=== PATIENT | female | born 1985 | race Caucasian/White ===

== ENCOUNTER → 2017-11-19 15:45 | Outpatient (CLI) | payer SELFPAY ==
--- NOTE | 2017-11-19 16:00 | MRI_ITS ---
STUDY: MRI BRAIN WITH AND WITHOUT CONTRAST REASON FOR EXAM: Female, 32 years old. Right optic neuritis and fullness with blurred vision TECHNIQUE: Standardized multiplanar fat and water weighted pulse sequences were obtained. 9 ml of Gadavist contrast material was administered intravenously for the contrast portion of the examination. COMPARISON: None. FINDINGS: Normal size of the ventricles and extra-axial spaces for the patient's age. There are multiple nonspecific bilateral periventricular white matter lesions several of which involve the septal callosal interface and in a female patient of this age may be consistent with multiple sclerosis. Normal bilateral basal ganglia. Normal thalami. There is no extra-axial fluid accumulation. Normal flow voids within the major intracranial circulation suggesting patency by spin echo criteria. Normal venous enhancement. There are enhancing foci in the right posterior temporal and parietal lobes which may be consistent with actively demyelinating plaque. Normal sella turcica, pituitary gland, infundibular stalk, optic chiasm and hypothalamus. Normal tectal plate and pineal gland. Normal midbrain, altagracia and medulla. Normal cerebellum. Normal basal cisterns. Normal bilateral temporal bones. Normal bilateral internal auditory canals. There is increased signal intensity seen within the retro-orbital portion of the right optic nerve which also enhances consistent with optic neuritis and enhancing plaque.. There is mild mucosal thickening within the maxillary and ethmoid sinuses bilaterally. Normal calvarium and skull base. Normal visualized soft tissue structures. Normal visualized upper cervical spine. MRI/Brain W/WO Contrast IMPRESSION: Findings which may be consistent with multiple sclerosis in association with right optic neuritis and enhancing plaque in the right optic nerve as well as the right posterior temporal and parietal lobes consistent with acute demyelination Electronically Signed: Aron Mcfadden MD at 18:04 EST , Service support ,
[2017-11-19 16:21] LABS: Internal QC Validated? YES +Cl - CLEAR BKGD; Pregnancy, Urine Negative Negative
== END ==
PROVIDERS: Family Provider Nurse Practitioner; PCP Nurse Practitioner; Visit Provider Ophthalmology
DX: H46.9 Unspecified optic neuritis (principal)
CPT/HCPCS: 70553; 81025; A9585

== ENCOUNTER 2018-02-06 08:26 | Emergency (ER) | payer SELFPAY ==
[2018-02-06 08:27] VITALS: BP 131/73; PULSE 101; RESP 20; TEMP 36.1; BMI 29.0
--- NOTE | 2018-02-06 08:45 | ED.VISSUMM ---
- ER Visit Summary Date of Service: 02/06/18 Chief Complaint: Abdominal pain History of Present Illness: The patient is a 33 F who sees Aracelis Lorenzo. She reports that she has abdominal pain began at 4:00 this morning. Today cramping, twisting diffuse pain is 10 out of 10 at worst a 10 currently. Is worsened by nothing. Is relieved transiently by diarrhea. She has been nausea and vomited 6-7 times. No blood or emesis. She has had 6-7 episodes of diarrhea. No blood in her stools or black tarry stools. Patient denies sick contacts. Has not been camping out of the country. No possible bad food exposure. Does drink well water but others at home due as well and they are not ill. No recent antibiotic use. She reports that she had similar symptoms over last weekend as well. Physical Examination: Vitals: Stable. Afebrile. General: Well-nourished and well-developed. Head: Normocephalic atraumatic. Neck: Supple, no lymphadenopathy. No JVD. Nontender. Cardiovascular: Regular rate and rhythm. No murmurs. Respiratory: No respiratory distress. Clear to auscultation bilaterally. Abdominal: Soft, mild diffuse sinus palpation that is worst in the epigastric region no Correa sign, nondistended, normal bowel sounds. No guarding, rebound, or peritoneal signs. Back: Nontender. Extremities: Nontender, no edema. Skin: Normal color, no rash. Neurologic: Alert and oriented ?3. Cranial nerves II through XII are intact. Normal strength and sensation. Psych: Normal affect. Test Results: CBC is marked for white count of 17.6 with 86 7 neutrophils and 8 lymphocytes. Chem-7 is normal. LFTs marked for an AST of 13. Lipase normal. test negative. CT flank shows normal appendix, multiple fluid filled non-dilated small bowel loops consistent with enteritis. Normal colon. Biliary sludge with no inflammation. A 2.3 cm subareolar left breast mass. Emergency Department Course and Treatment: Patient had an IV placed. She was given a there are of normal saline, Toradol, morphine, and Zofran IV. She is resting comfortably. She has had no diarrhea while here. Treatment Plan: Patient was discussed with Dr. Bhatia who states that she will speak with Dr. Whipple and then call the patient regarding further imaging of this breast mass. She will be discharged with Zofran and Notus for the diarrhea and abdominal pain. Instructed to follow-up Aracelis Lorenzo in 1-2 days if that is not improving. Return to the emergency department for any worsening symptoms. Disposition: To home in improved and stable condition. Impression: 1. Vomiting/diarrhea. 2. Biliary sludge. 3. 2.3 cm subareolar left breast mass. This note was generated with [employer] dictation software. It may contain incorrect words, spelling, and punctuation that were not noted in review of the chart prior to signing ED Disposition - Plan for ED Patient: Disposition: Home or Assisted Living Chief Complaint: Abd Pain Instructions: ED Breast Mass Uncertain Cause, ED Vomiting Diarrhea Nonspecific Ad Prescriptions: Hydrocodone Bitart/Apap 5-325 [Notus 5/325] 1 - 2 tablet PO Q4H PRN PRN 3 Days #12 tablet PRN Reason: Pain Ondansetron [Zofran Odt] 4 mg PO Q8H PRN PRN #10 tablet PRN Reason: Nausea Referrals: Aracelis Hurd [Primary Care Provider] - 1-2 Days if not improving Kelly Lofton MD [STAFF PHYSICIAN] - As soon as possible
[2018-02-06 09:08] LABS: Absolute Lymphocyte Count 1.38 X10^3/ul (0.83-4.51); Absolute Neutrophil Count 15.2 X10^3/uL (2.0-7.7); Basophil# 0.06 X10^3/uL; Basophil% 0.3 % (0-1); Eosinophils% 0.6 % (0-5); Hematocrit 42.4 % (37-47); Hemoglobin 14.7 g/dl (12.0-15.0); Lymphocyte # 1.38 X10^3/ul (4.0); Lymphocyte % 7.9 % (19-41); Mean Corp Hgb Conc 34.7 g/gl (32-36); Mean Corpuscular Hgb 30.2 pg (27.0-32.0); Mean Corpuscular Volume 87.1 fL (81-99); Mean Platelet Vol. 10.4 fl (6.2-12.0); Monocyte# 0.82 X10^3/uL; Monocyte% 4.7 % (0-10); Neutrophil # 15.17 X10^3/uL (2.7-7.7); Neutrophil % 86.3 % (47-70); Platelet Count 375 K/mm3 (150-450); RBC Distribution Width CV 12.3 % (11.6-14.6); RBC Distribution Width SD 38.7 fl (35.1-43.9); Red Blood Count 4.87 M/mm3 (4.2-5.4); White Blood Count 17.6 K/mm3 (4.4-11.0)
[2018-02-06] MEDS: proMETHazine 25 MG/ML Syringe 6.25 MG IV (09:08)
[2018-02-06] MEDS: 0.9% Normal Saline 1,000 ML 1000 ML IV (09:08)
[2018-02-06 09:09] LABS: Differential Indicated SCAN CRITERIA MET; POSITIVE COUNT NO; POSITIVE DIFFERENTIAL NO; POSITIVE MORPHOLOGY YES
[2018-02-06] MEDS: Morphine 4 MG/ML Syringe IV (09:09)
[2018-02-06] MEDS: Ketorolac 30 MG/ML Syringe IV (09:09)
[2018-02-06 09:17] LABS: BUN 10 mg/dL (7-18); Creatinine, Serum 0.72 mg/dL (0.55-1.02); Glucose 93 mg/dL (74-106)
[2018-02-06 09:18] LABS: ALB/GLOB Ratio 1.1 RATIO (0.9-2.4); AST(SGOT) 13 U/L (15-37); Alanine Aminotransfer ALT/SGPT 22 U/L (13-56); Albumin, Serum 4.2 g/dL (3.2-5.0); Alkaline Phosphatase 57 U/L (45-117); Anion Gap 8 (5-15); BUN/Creat Ratio 13.9 RATIO (10-20); Chloride 105 mmol/L (98-107); EST Glomerular Filtration Rate 101 mL/min (>60); Est Glom Filt Rate - Afr Amer 122 mL/min (>60); Estimated Creatinine Clearance 105.98 ml/min; Globulin 3.9 g/dL (2.2-4.2); Lipase 156 U/L (73-393); Potassium 3.9 mmol/L (3.5-5.1); Protein, Total 8.1 g/dL (6.4-8.2); Sodium Level 139 mmol/L (136-145)
[2018-02-06 09:20] LABS: Pregnancy, Serum, hCG Quali. NEGATIVE Negative (0-9 Nonpreg)
--- NOTE | 2018-02-06 10:05 | CT_ITS ---
STUDY: CT ABDOMEN AND PELVIS WITHOUT CONTRAST REASON FOR EXAM: Female, 33 years old. Diarrhea and pain x3 days. RADIATION DOSAGE (If Supplied By Facility): CTDIvol = ( 13.89 ) mGy, DLP = ( 679.95 ) mGycm TECHNIQUE: Transaxial images were obtained from the dome of the diaphragm to the symphysis pubis without oral contrast, and without intravenous contrast. Sagittal and coronal images were reconstructed. Individualized dose optimization techniques were used for this CT. COMPARISON: None. FINDINGS: There appears to be a 2.3 cm subareolar left breast mass. Recommend correlation with mammography and ultrasound. The visualized lung bases are unremarkable. The visualized portions of the heart are within normal limits. Normal liver. Mildly high density materials layering within the gallbladder. No gallstones are evident. There is no pericholecystic fluid. There is no gallbladder wall thickening. Intrahepatic and extra hepatic bile ducts appear unremarkable. Normal spleen. Normal pancreas. Normal bilateral adrenal glands. Normal right kidney. Normal left kidney. Normal visualized stomach. There multiple fluid-filled nondilated small bowel loops, predominantly within the low abdomen/upper pelvis. Normal colon. The appendix is visualized and appears normal. There is no free fluid. There is no free air. Normal abdominal aorta. Normal inferior vena cava. Normal retroperitoneum. Normal urinary bladder. Normal abdominal wall. Normal osseous structures. CT/Abdomen/Pelvis without Cont IMPRESSION: Multiple fluid-filled nondilated small bowel loops within the low abdomen/upper pelvis. Consider enteritis. No evident obstruction. No free air. No free fluid. Gallbladder sludge. Left subareolar breast mass. Recommend correlation with mammography and sonography. Electronically Signed: Renzo Victor MD at 10:37 EDT , Service support ,
[2018-02-06 10:33] VITALS: BP 124/67; PULSE 72; RESP 16; O2SAT 99
[2018-02-06 11:20] VITALS: BP 127/49; PULSE 71; RESP 16; O2SAT 98
[2018-02-11 09:33] LABS: Pathologist Review Reviewed
== END 2018-02-06 11:21 | disposition home or self-care (01) ==
LOC: ED 09:16
PROVIDERS: Emergency Provider Emergency Medicine; Family Provider Nurse Practitioner; PCP Nurse Practitioner
DX: R11.2 Nausea with vomiting, unspecified (principal); R19.7 Diarrhea, unspecified; K83.8 Other specified diseases of biliary tract; N63.20 Unspecified lump in the left breast, unspecified quadrant
CPT/HCPCS: 74176; 80053; 83690; 84703; 85025; 96374; 96375; 99283; J7030

== ENCOUNTER → 2018-02-11 09:41 | Outpatient (CLI) | payer SELFPAY ==
--- NOTE | 2018-02-11 09:46 | BI_ITS ---
MAMMOGRAPHY - BILATERAL DIAGNOSTIC REASON FOR EXAM: Female, 33 years old. BASELINE EXAM PERTINENT HISTORY: CT SCAN DONE 02/06/17 FOUND LEFT BREAST MASS 2.3CM -NOT PALPABLE NO SX QUIT BREAST FEEDING IN NOV 2017 TECHNIQUE: Digital bilateral breast isaac (3D mammographic acquisition) in the CC and MLO projections. 2-D mediolateral oblique (MLO) and craniocaudad (CC) views of both breasts were obtained. CAD: Full Field Digital Mammography with Computer Added Detection was performed. COMPARISON: None. FINDINGS: Breast Composition: The breasts are heterogeneously dense, which may obscure small masses. There are no dominant masses or suspicious calcifications. The described mass noted on CT scan is not seen on this study. Further evaluation by ultrasound of the retroareolar region of the left breast is recommended and is performed on the same day. No other significant abnormalities are identified. BI/DIAG MAMM W/CAD, BILAT IMPRESSION: Further ultrasonographic evaluation recommended, as described above. (I) ASSESSMENT CATEGORY: BIRADS Category 0: Incomplete. Need additional imaging evaluation. A letter regarding these results will be sent to the patient by the facility within 30 days. Approximately 10% of breast cancers are not detected by mammography. A normal mammogram should not delay biopsy of a clinically suspicious abnormality. Electronically Signed: Dylon Reyes MD at 15:22 EDT Tel , Service support ,
--- NOTE | 2018-02-11 09:46 | US_ITS ---
STUDY: ULTRASOUND BREAST - LEFT REASON FOR EXAM: Female, 33 years old. BREAST MASS ON CT PT HAD MAMMO TODAY ALSO TECHNIQUE: Axial and longitudinal images of the LEFT breast were performed with a high resolution ultrasound transducer. COMPARISON: None. FINDINGS: LEFT Breast: There is a cystic lesion in the retroareolar region. The lesion measures 1.7 x 1.5 x 0.7 cm in size. Posterior Enhancement: Yes. Posterior Shadowing: None. Margins: Sharp and smooth. Echogenicity: Anechoic. Compression effect on Shape: No change. US/Breast Limited Unilateral IMPRESSION: Benign retroareolar cystic lesion measures 1.7 x 1.5 x 0.7 cm. ASSESSMENT CATEGORY: BIRADS Category 2: Benign. A letter regarding these results will be sent to the patient by the facility within 30 days. Electronically Signed: Dylon Reyes MD at 14:24 EDT Tel , Service support ,
== END ==
PROVIDERS: Family Provider Nurse Practitioner; PCP Nurse Practitioner; Visit Provider Obstetrics & Gynecology
DX: N63.20 Unspecified lump in the left breast, unspecified quadrant (principal)
CPT/HCPCS: 76642; 77062; 77066; G0279

== ENCOUNTER → 2018-11-05 11:00 | Outpatient (CLI) | payer SELFPAY ==
--- NOTE | 2018-11-05 11:17 | MRI_ITS ---
STUDY: MRI BRAIN WITH AND WITHOUT CONTRAST REASON FOR EXAM: Female, 33 years old. MS -- dx with ms 1 year, on meds since, recheck, vision problems from then resolved. TECHNIQUE: Standardized multiplanar fat and water weighted pulse sequences were obtained. 8 ml of Gadavist contrast material was administered intravenously for the contrast portion of the examination. COMPARISON: 11/19/2017 FINDINGS: Normal size of the ventricles and extra-axial spaces for the patient's age. Again noted are the multiple periventricular and subcortical small white matter hyperintensities. Some of which demonstrate typical configuration of multiple sclerosis without evidence of enhancement or restriction to chicken stub dictation by to suggest active demyelination. There are no demonstrated new lesions Normal bilateral basal ganglia. Normal thalami. There is no extra-axial fluid accumulation. Normal flow voids within the major intracranial circulation suggesting patency by spin echo criteria. Normal venous enhancement. There is no enhancing intra-axial or extra-axial abnormality. Normal sella turcica, pituitary gland, infundibular stalk, optic chiasm and hypothalamus. Normal tectal plate and pineal gland. Normal midbrain, altagracia and medulla. Normal cerebellum. Normal basal cisterns. Normal bilateral temporal bones. Normal bilateral internal auditory canals. No demonstrated orbital abnormality, within the constraints of a routine brain study. Normal visualized paranasal sinuses. Normal calvarium and skull base. Normal visualized soft tissue structures. Normal visualized upper cervical spine. MRI/Brain W/WO Contrast IMPRESSION: Stable examination. No active demyelination. Multiple supratentorial white matter plaques. Electronically Signed: Ihsan Dupont MD at 13:55 EST Tel , Service support ,
--- NOTE | 2018-11-05 13:38 | BI_ITS ---
MAMMOGRAPHY - BILATERAL DIAGNOSTIC REASON FOR EXAM: Female, 33 years old. Right breast lump. PERTINENT HISTORY: History of left breast cyst. TECHNIQUE: Digital bilateral breast isaac (3D mammographic acquisition) in the CC and MLO projections. 2-D mediolateral oblique (MLO) and craniocaudad (CC) views of both breasts were obtained. CAD: Full Field Digital Mammography with Computer Added Detection was performed. COMPARISON: Comparison is made with prior study dated February 11, 2018. FINDINGS: Breast Composition: The breasts are heterogeneously dense, which may obscure small masses. There is a 1.8 cm x 1.6 cm well-defined nodular density in the inferior retroareolar region of the left breast. No other significant abnormalities are identified. There has been no significant change since the prior study. BI/DIAG MAMM W/CAD, BILAT IMPRESSION: Stable bilateral diagnostic mammogram. With the patient's history of a palpable abnormality in the upper lateral aspect of the right breast, correlation with ultrasound is recommended. Correlation with ultrasound of the left breast in the retroareolar region is recommended as well. ASSESSMENT CATEGORY: BIRADS Category 0: Incomplete. Need additional imaging evaluation. A letter regarding these results will be sent to the patient by the facility within 30 days. Approximately 10% of breast cancers are not detected by mammography. A normal mammogram should not delay biopsy of a clinically suspicious abnormality. Electronically Signed: Luigi Chou MD at 14:48 EST , Service support ,
--- NOTE | 2018-11-05 13:38 | US_ITS ---
STUDY: ULTRASOUND BREAST - RIGHT REASON FOR EXAM: Female, 33 years old. Palpable abnormality in the upper outer quadrant of the breast. TECHNIQUE: Axial and longitudinal images of the RIGHT breast were performed with a high resolution ultrasound transducer. COMPARISON: Comparison is made with prior mammogram done earlier today. FINDINGS: RIGHT Breast: The palpable abnormality corresponds to a 1 cm x 1 cm x 0.5 cm well-defined hypoechoic nodule. Flow is seen within the hilum. This most likely represents a lymph node. IMPRESSION: Findings suggestive of a 1 cm x 1 cm x 0.5 cm lymph node at the 11:00 position of the breast at 8 cm from the nipple. ASSESSMENT CATEGORY: BIRADS Category 2: Benign. A letter regarding these results will be sent to the patient by the facility within 30 days. Electronically Signed: Luigi Chou MD at 15:45 EST , Service support , STUDY: ULTRASOUND BREAST - LEFT REASON FOR EXAM: Female, 33 years old. Known left breast cyst. TECHNIQUE: Axial and longitudinal images of the LEFT breast were performed with a high resolution ultrasound transducer. COMPARISON: Comparison is made with prior ultrasound of the left breast dated February 11, 2018. FINDINGS: LEFT Breast: There is a 1.7 cm x 2.1 cm x 0.6 cm cyst in the inferior retrosternal areolar region of the breast. This has increased slightly in size as compared to prior study. US/Breast Limited Unilateral IMPRESSION: Slight increase in size of the inferomedial retroareolar cyst. ASSESSMENT CATEGORY: BIRADS Category 2: Benign. A letter regarding these results will be sent to the patient by the facility within 30 days. Electronically Signed: Luigi Chou MD at 15:46 EST , Service support ,
--- OUTSIDE RECORDS SUMMARY | 2019-01-07 08:54 | XMS RPT_ITS ---
:1985 Author Organization OHIP Care Team Providers Name Role Phone VINCENTLARACELIS R Attending Unavailable RENSEL, ARACELIS R Referring Unavailable RENSEL, ARACELIS R Referring Unavailable RENSEL, ARACELIS R Referring Unavailable RENSEL, ARACELIS R Referring Unavailable RENSEL, ARACELIS R Referring Unavailable CARLY LI (MEDICAL IMAGING TECHNICIAN) Attending Unavailable RENSEL, ARACELIS R Referring Unavailable Josias KRISHNAN (PA-C) Attending Unavailable KELLY ELIAS Attending Unavailable KELLY ELIAS Referring Unavailable Kelly Lofton Attending Unavailable LUPE RICHARDS Referring Unavailable [facility] Primary Care Unavailable Kelly Lofton Consulting Unavailable Aron Perez Attending Unavailable Aron Perez Referring Unavailable Aracelis Hurd Primary Care Unavailable Ciesa, Aracelis Primary Care Unavailable Dillon Soto Attending Unavailable Natividad Viramontes Attending Unavailable Natividad Viramontes Referring Unavailable Ashlitiminocencia Aracelis Primary Care Unavailable PROBLEMS PROBLEMS DATE TYPE CONDITION / CODE ATTENDING STATUS SOURCE 03/07/2018 Unknown N63.20 - Wander Active Anya Unspecified lump in [facility] the left breast, Hospital unspecified Repository quadrant / N63.20(ICD-10) 02/06/2018 Unknown R10.9 - Unspecified Dillon Soto Active [place] abdominal pain / Community R10.9(ICD-10) Hospital Repository 11/26/2017 Active Multiple sclerosis NA Active [facility] / G35(ICD-10) Main [place] Repository 11/26/2017 Active Demyelinating NA Active [facility] disease of central Main [place] nervous system, Repository unspecified / G37.9(ICD-10) 11/25/2017 Unknown H46.9 - Unspecified Perez, Active Anya optic neuritis / [facility] H46.9(ICD-10) Hospital Repository PROCEDURES PROCEDURES No Procedure Records FoundRESULTS RESULTS DIAG MAMM W/CAD, Observed: 11/05/2018 Status: F Source: [place] B[place] 1:44 PM [facility] [place] REPOSITORY [facility] [address] [place] [address] DIAG MAMM W/CAD, BILAT MR#: [id number] Acct: [id number] Name: ARGENIS TSAI Rep #: [id number] : 1985 F 33 From: Luigi Chou MD PCP: Aracelis Hurd NP Status: REG CLI Study: DIAG MAMM W/CAD, BILAT Date of Exam: 11/05/18 Exam# [id number] Ordering Dr: Kelly Banda MD ADDENDUM by Luigi Chou MD on 11/05/18 at 1543 ADDENDUM This is an addendum report. Image count was updated. Electronically Signed: Luigi Chou MD at 15:43 EST , Service support , 11/05/18 1543 Date cc: Aracelis Hurd NP; Kelly Lofton MD * Signed ADDENDUM by Luigi Chou MD on 11/05/18 at 1543 BI/DIAG MAMM W/CAD, BILAT 11/05/18 1550 Date cc: Aracelis Hurd NP; Kelly Lofton MD * Signed MAMMOGRAPHY - BILATERAL DIAGNOSTIC REASON FOR EXAM: Female, 33 years old. Right breast lump. PERTINENT HISTORY: History of left breast cyst. TECHNIQUE: Digital bilateral breast isaac (3D mammographic acquisition) in the CC and MLO projections. 2-D mediolateral oblique (MLO) and craniocaudad (CC) views of both breasts were obtained. CAD: Full Field Digital Mammography with Computer Added Detection was performed. COMPARISON: Comparison is made with prior study dated February 11, 2018. FINDINGS: Breast Composition: The breasts are heterogeneously dense, which may obscure small masses. There is a 1.8 cm x 1.6 cm well-defined nodular density in the inferior retroareolar region of the left breast. No other significant abnormalities are identified. There has been no significant change since the prior study. BI/DIAG MAMM W/CAD, BILAT IMPRESSION: Stable bilateral diagnostic mammogram. With the patient's history of a palpable abnormality in the upper lateral aspect of the right breast, correlation with ultrasound is recommended. Correlation with ultrasound of the left breast in the retroareolar region is recommended as well. ASSESSMENT CATEGORY: BIRADS Category 0: Incomplete. Need additional imaging evaluation. A letter regarding these results will be sent to the patient by the facility within 30 days. Approximately 10% of breast cancers are not detected by mammography. A normal mammogram should not delay biopsy of a clinically suspicious abnormality. Electronically Signed: Luigi Chou MD at 14:48 EST , Service support , CC: Aracelis Hurd NP; Kelly Lofton MD Account Manager Trainee: Signed BREAST LIMITED Observed: 11/05/2018 Status: F Source: [place] UNILATERAL 1:44 PM [facility] REPOSITORY [facility] [address] [place] [id number] Breast Limited Unilateral MR#: [id number] Acct: [id number] Name: ARGENIS TSAI Rep #: [id number] : 1985 F 33 From: Luigi Chou MD PCP: Aracelis Hurd NP Status: REG CLI Study: Breast Limited Unilateral Date of Exam: 11/05/18 Exam# [id number] Ordering Dr: Kelly Banda MD STUDY: ULTRASOUND BREAST - RIGHT REASON FOR EXAM: Female, 33 years old. Palpable abnormality in the upper outer quadrant of the breast. TECHNIQUE: Axial and longitudinal images of the RIGHT breast were performed with a high resolution ultrasound transducer. COMPARISON: Comparison is made with prior mammogram done earlier today. FINDINGS: RIGHT Breast: The palpable abnormality corresponds to a 1 cm x 1 cm x 0.5 cm well-defined hypoechoic nodule. Flow is seen within the hilum. This most likely represents a lymph node. IMPRESSION: Findings suggestive of a 1 cm x 1 cm x 0.5 cm lymph node at the 11:00 position of the breast at 8 cm from the nipple. ASSESSMENT CATEGORY: BIRADS Category 2: Benign. A letter regarding these results will be sent to the patient by the facility within 30 days. Electronically Signed: Luigi Chou MD at 15:45 EST , Service support , STUDY: ULTRASOUND BREAST - LEFT REASON FOR EXAM: Female, 33 years old. Known left breast cyst. TECHNIQUE: Axial and longitudinal images of the LEFT breast were performed with a high resolution ultrasound transducer. COMPARISON: Comparison is made with prior ultrasound of the left breast dated February 11, 2018. FINDINGS: LEFT Breast: There is a 1.7 cm x 2.1 cm x 0.6 cm cyst in the inferior retrosternal areolar region of the breast. This has increased slightly in size as compared to prior study. US/Breast Limited Unilateral IMPRESSION: Slight increase in size of the inferomedial retroareolar cyst. ASSESSMENT CATEGORY: BIRADS Category 2: Benign. A letter regarding these results will be sent to the patient by the facility within 30 days. Electronically Signed: Luigi Chou MD at 15:46 EST , Service support , CC: Aracelis Hurd NP; Kelly Lofton MD Account Manager Trainee: Signed BRAIN W/WO CONTRAST Observed: 11/05/2018 Status: F Source: ANYA 11:17 AM [facility] REPOSITORY [facility] [address] [place] [address] Brain W/WO Contrast MR#: [id number] Acct: [id number] Name: ARGENIS TSAI Rep #: [id number] : 1985 F 33 From: Ihsan Dupont PCP: Aracelis Hurd NP Status: REG CLI Study: Brain W/WO Contrast Date of Exam: 11/05/18 Exam# [id number] Ordering Dr: AUDRA LEVIN M.D. STUDY: MRI BRAIN WITH AND WITHOUT CONTRAST REASON FOR EXAM: Female, 33 years old. MS -- dx with ms 1 year, on meds since, recheck, vision problems from then resolved. TECHNIQUE: Standardized multiplanar fat and water weighted pulse sequences were obtained. 8 ml of Gadavist contrast material was administered intravenously for the contrast portion of the examination. COMPARISON: 11/19/2017 FINDINGS: Normal size of the ventricles and extra-axial spaces for the patient's age. Again noted are the multiple periventricular and subcortical small white matter hyperintensities. Some of which demonstrate typical configuration of multiple sclerosis without evidence of enhancement or restriction to chicken stub dictation by to suggest active demyelination. There are no demonstrated new lesions Normal bilateral basal ganglia. Normal thalami. There is no extra-axial fluid accumulation. Normal flow voids within the major intracranial circulation suggesting patency by spin echo criteria. Normal venous enhancement. There is no enhancing intra-axial or extra-axial abnormality. Normal sella turcica, pituitary gland, infundibular stalk, optic chiasm and hypothalamus. Normal tectal plate and pineal gland. Normal midbrain, altagracia and medulla. Normal cerebellum. Normal basal cisterns. Normal bilateral temporal bones. Normal bilateral internal auditory canals. No demonstrated orbital abnormality, within the constraints of a routine brain study. Normal visualized paranasal sinuses. Normal calvarium and skull base. Normal visualized soft tissue structures. Normal visualized upper cervical spine. MRI/Brain W/WO Contrast IMPRESSION: Stable examination. No active demyelination. Multiple supratentorial white matter plaques. Electronically Signed: Ihsan Dupont MD at 13:55 EST Tel , Service support , CC: AUDRA LEVIN M.D.; Aracelis Hurd NP Account Manager Trainee: Signed PROGRESS Observed: 10/24/2018 Status: COMPLETED Source: [place] 10:11 AM [facility] REPOSITORY O ID: [id number] Author: Kelly Aguirre Service: (none) Author Type: Physician Type: Progress Notes Filed: 10/24/2018 10:40 AM Note Text: Argenis Tsai is a 33 year old who presents for her annual gynecologic exam without complaints. Doing well with meds for Has 4 children- youngest is one year old Menses: cycles every 28-30 days and 6 days of flow. Contraception: vasectomy HPV vaccine: No Last Pap: 2017 normal HPV: N/A History of abnormal pap: No Last mammogram: 2017 left breast cyst Sexually active: Yes History of STDS: None Patient concerns for STD exposure: No. Pain with intercourse: No Postcoital bleeding: No Exercise: not routine Diet: balanced Obstetric History T4 L4 SAB0 TAB0 Ectopic0 Multiple0 Live Births4 PAST MEDICAL HISTORY Diagnosis Date - Gestational diabetes mellitus, class A1 04/01/2017 - NEGATIVE MEDICAL HISTORY PAST SURGICAL HISTORY Procedure Laterality Date - TONSILLECTOMY HX FAMILY HISTORY Problem Relation Age of Onset - Heart Mother PACEMAKER/aortic aneurysm, age 40 - Hypertension Mother - Diabetes Mother - other (Granuloma Annulare w/ ?Lupus) Mother - Diabetes Father - Hypertension Father - Lipids Father - Asthma Sister - Heart Sister aortic valve stensosis: surgery, aortic arch aneurysm - Diabetes Sister - Hypertension Brother - Alzheimer's Disease Maternal Grandmother - Prostate Cancer Maternal Grandfather - other (Pemphigoid) Maternal Grandfather - Heart Paternal Grandfather ID - Breast Cancer Maternal Aunt - Cancer Paternal Uncle PANCREATIC - other (lupus) Maternal Aunt SOCIAL HISTORY Social History Substance Use Topics - Smoking status: Never Smoker - Smokeless tobacco: Never Used - Alcohol use No REVIEW OF SYSTEMS Abdomen: No abdominal pain, nausea, vomiting, diarrhea, or constipation. No bloating, early satiety, indigestion, or increased flatulence. Bladder: No dysuria, gross hematuria, urinary frequency, urinary urgency, or incontinence. Breast: No breast lumps, nipple d/c, overlying skin changes, redness or skin retraction. Allergies and current medication updated:Yes EXAM: BP 114/70 Ht 5' 5.5 (1.66m) Wt 190 lb (86.2kg) LMP 09/27/2018 BMI 31.13 kg/(m2). GENERAL: pleasant, female in no apparent distress HEENT: Normocephalic, atraumatic, mucus membranes moist and no lesions NECK: Supple, full range of motion, no adenopathy and thyroid normal DERMATOLOGY: Normal, without lesions, non-icteric and non-hirsute BREAST: soft, non-tender, symmetric, normal nipple-areolar complex, no lymphadenopathy and right breast with oval mass noted in upper outer quadrant right breast. Nipple discharge present Bilaterally- milky in nature. Left breast cyst previously noted on ultrasound- not palpable today ABDOMEN: soft, non-tender and no masses PELVIC: external genitalia normal, normal Bartholin's glands, urethra, [place]'s glands, no vulvar lesions, no cervical lesions, good vaginal support, physiologic discharge present, normal appearing perineal body and perianal region BIMANUAL: uterus normal size, shape and consistency, no adnexal masses and non-tender RECTOVAGINAL: deferred. NEURO: alert and oriented x3,exam grossly non-focal EXTREMITIES: normal ASSESSMENT/PLAN: 1) Health maintenance: Pap/HPV up to date. Mammogram ordered bilateral diagnostic and ultrasound Nutrition, exercise and routine health maintenance exams reviewed. 2) Contraception: vasectomy. Contraceptive options reviewed and information provided. 3) STD screening: Declined STD check. 4) Follow up one year or sooner as needed Kelly Lofton MD PROGRESS Observed: 10/24/2018 Status: COMPLETED Source: [place] 9:59 AM [facility] REPOSITORY HNO ID: [id number] Author: Sandra Brock Ma Service: (none) Author Type: (none) Type: Progress Notes Filed: 10/24/2018 10:40 AM Note Text: Surface Hydrologist offered: Patient declines. CARIDAD Observed: 10/24/2018 Status: COMPLETED Source: [place] 9:50 AM [facility] REPOSITORY Office Visit (WOOB) ARGENIS TSAI ([id number]) 1985 F Date Time Provider Department 10/24/18 9:50 AM KELLY ELIAS During your visit today, we recorded the following information about you: Blood pressure Weight Height Last Period 114/70 86.2 kg 1.664 m 09/27/18 Sandra Brock Ma 10/24/2018 10:40 AM Signed Surface Hydrologist offered: Patient declines. Kelly Lofton MD 10/24/2018 10:40 AM Signed Argenis Mary Tsai is a 33 year old who presents for her annual gynecologic exam without complaints. Doing well with meds for Has 4 children- youngest is one year old Menses: cycles every 28-30 days and 6 days of flow. Contraception: vasectomy HPV vaccine: No Last Pap: 2016 normal HPV: N/A History of abnormal pap: No Last mammogram: 2017 left breast cyst Sexually active: Yes History of STDS: None Patient concerns for STD exposure: No. Pain with intercourse: No Postcoital bleeding: No Exercise: not routine Diet: balanced Obstetric History T4 L4 SAB0 TAB0 Ectopic0 Multiple0 Live Births4 PAST MEDICAL HISTORY Diagnosis Date - Gestational diabetes mellitus, class A1 04/01/2017 - NEGATIVE MEDICAL HISTORY PAST SURGICAL HISTORY Procedure Laterality Date - TONSILLECTOMY HX FAMILY HISTORY Problem Relation Age of Onset - Heart Mother PACEMAKER/aortic aneurysm, age 40 - Hypertension Mother - Diabetes Mother - other (Granuloma Annulare w/ ?Lupus) Mother - Diabetes Father - Hypertension Father - Lipids Father - Asthma Sister - Heart Sister aortic valve stensosis: surgery, aortic arch aneurysm - Diabetes Sister - Hypertension Brother - Alzheimer's Disease Maternal Grandmother - Prostate Cancer Maternal Grandfather - other (Pemphigoid) Maternal Grandfather - Heart Paternal Grandfather ID - Breast Cancer Maternal Aunt - Cancer Paternal Uncle PANCREATIC - other (lupus) Maternal Aunt SOCIAL HISTORY Social History Substance Use Topics - Smoking status: Never Smoker - Smokeless tobacco: Never Used - Alcohol use No REVIEW OF SYSTEMS Abdomen: No abdominal pain, nausea, vomiting, diarrhea, or constipation. No bloating, early satiety, indigestion, or increased flatulence. Bladder: No dysuria, gross hematuria, urinary frequency, urinary urgency, or incontinence. Breast: No breast lumps, nipple d/c, overlying skin changes, redness or skin retraction. Allergies and current medication updated:Yes EXAM: BP 114/70 Ht 5' 5.5 (1.66m) Wt 190 lb (86.2kg) LMP 09/27/2018 BMI 31.13 kg/(m2). GENERAL: pleasant, female in no apparent distress HEENT: Normocephalic, atraumatic, mucus membranes moist and no lesions NECK: Supple, full range of motion, no adenopathy and thyroid normal DERMATOLOGY: Normal, without lesions, non-icteric and non-hirsute BREAST: soft, non-tender, symmetric, normal nipple-areolar complex, no lymphadenopathy and right breast with oval mass noted in upper outer quadrant right breast. Nipple discharge present Bilaterally- milky in nature. Left breast cyst previously noted on ultrasound- not palpable today ABDOMEN: soft, non-tender and no masses PELVIC: external genitalia normal, normal Bartholin's glands, urethra, [place]'s glands, no vulvar lesions, no cervical lesions, good vaginal support, physiologic discharge present, normal appearing perineal body and perianal region BIMANUAL: uterus normal size, shape and consistency, no adnexal masses and non-tender RECTOVAGINAL: deferred. NEURO: alert and oriented x3,exam grossly non-focal EXTREMITIES: normal ASSESSMENT/PLAN: 1) Health maintenance: Pap/HPV up to date. Mammogram ordered bilateral diagnostic and ultrasound Nutrition, exercise and routine health maintenance exams reviewed. 2) Contraception: vasectomy. Contraceptive options reviewed and information provided. 3) STD screening: Declined STD check. 4) Follow up one year or sooner as needed Kelly Neyhart-Aguirre, MD Kelly Neyhart-Aguirre, MD 10/24/2018 10:11 AM Signed ACOG Screening Guidelines (2015) The following health screening schedule is recommended by the [employer] (ACOG). Some of these tests may be ordered or performed by your primary care doctor. Pap test screening The pap test looks at cells on the cervix (the opening from the vagina to the uterus) to look for cancer or pre-cancerous changes. These changes are caused by the human papillomavirus (HPV). Studies estimate that half of all women will test positive for this virus within 3 years of starting sexual activity. For young women with a normal immune system, 90% of HPV infections will resolve within 2 years. There is a vaccine available against some forms of HPV. This is recommended for girls and women age 9-26 and is a series of 3 injections over 6 months. Because this vaccine does not protect against all HPV types which can cause cervical cancer, women who received the vaccine still need pap tests. Pap smear screening should be started at age 21. The pap test should be done every 3 years from age 21-29. From age 30-65, pap smears can be done every 5 years if HPV test is negative or every 3 years if HPV testing is not done. For women over the age of 65, ACOG recommends against screening women who have had adequate prior screening and are not otherwise at high risk for cervical cancer. Women who have had a hysterectomy also do not need routine pap smear screening unless the pap smear was done for a cervical cancer or moderate to severe dysplasia. Breast cancer screening Mammogram should be performed every 1-2 years starting at age 40 and every year starting at age 50. Screening may be started earlier depending on family history. Cholesterol screening Lipid panel (cholesterol test) should be checked every 5 years starting at age 45. Diabetes screening Fasting glucose (blood sugar) test should be performed every 3 years starting at age 45. Colorectal cancer screening Starting at age 50, women should have a screening colonoscopy at least every 10 years. Screening may be started earlier depending on family history. Thyroid screening Thyroid function test (TSH) should be checked every 5 years starting at age 50. Bone mineral density screening All postmenopausal women age 65 and over and postmenopausal women with risk factors for osteoporosis should have a bone mineral density test performed. Risk factors include race, family history of osteoporosis, personal history of fractures, poor nutrition, smoking, heavy alcohol use, early menopause, low calcium intake and low body weight. Certain medical conditions and long-term use of some medications may also increase risk. Referring Provider: KELLY ELIAS [[id number]] Allergies As of Date: 10/24/2018 Noted Allergy Reaction MACRODANTIN (NITROFURANTOIN MACRO*04/12/2014 4 - Hives 12 - Shortness of Breath Comments: TACHYCARDIA SULFA (SULFONAMIDE ANTIBIOTICS) 04/12/2014 4 - Hives Date Reviewed: 10/24/2018 Reviewed by: Sandra Brock Ma - Fully Assessed Reason for Visit: Yearly Exam [187] Primary Visit Diagnosis:Encounter for gynecological examination without abnormal finding [Z01.419] Other Visit Diagnoses:Encounter for screening for malignant neoplasm of cervix [Z12.4] Special screening examination for human papillomavirus (HPV) [Z11.51] Lump or mass in breast [N63.0] Nipple discharge [N64.52] Prescriptions as of 10/24/2018 Sig: CHOLECALCIFEROL (VITAMIN D3) * Take 2 capsules by mouth once* NATALIZUMAB 300 MG/15 ML INTR* Inject 300 mg intravenously o* OMEGA 3 ORAL Take by mouth. Omeg* VITAMIN,CALCIUM,MINE* Take 1 tablet by mouth. COMPOUNDED PRESCRIPTION Massage Therapy for Sciatic P* Problem List As Of Date 10/24/2018 Noted Resolved Family history of congenital heart defect [Z82.*INVALID FOR*07/25/2017 More... Family history of cystic fibrosis [Z83.49] INVALID FOR*07/25/2017 More... Vaginal discharge in [O26.899, N89.8] INVALID FOR*04/28/2014 More... More... More... History of oligohydramnios in prior , *INVALID FOR*07/25/2017 Encounter for supervision of normal i*INVALID FOR*07/25/2017 Abnormal glucose affecting [O99.810] INVALID FOR*07/25/2017 More... Gestational diabetes mellitus, class A1 [O24.41*INVALID FOR*07/25/2017 Multiple sclerosis (HCC) [G35] INVALID FOR* More... Other instructions from your clinician: ACOG Screening Guidelines (2015) The following health screening schedule is recommended by the [employer] (ACOG). Some of these tests may be ordered or performed by your primary care doctor. Pap test screening The pap test looks at cells on the cervix (the opening from the vagina to the uterus) to look for cancer or pre-cancerous changes. These changes are caused by the human papillomavirus (HPV). Studies estimate that half of all women will test positive for this virus within 3 years of starting sexual activity. For young women with a normal immune system, 90% of HPV infections will resolve within 2 years. There is a vaccine available against some forms of HPV. This is recommended for girls and women age 9-26 and is a series of 3 injections over 6 months. Because this vaccine does not protect against all HPV types which can cause cervical cancer, women who received the vaccine still need pap tests. Pap smear screening should be started at age 21. The pap test should be done every 3 years from age 21-29. From age 30-65, pap smears can be done every 5 years if HPV test is negative or every 3 years if HPV testing is not done. For women over the age of 65, ACOG recommends against screening women who have had adequate prior screening and are not otherwise at high risk for cervical cancer. Women who have had a hysterectomy also do not need routine pap smear screening unless the pap smear was done for a cervical cancer or moderate to severe dysplasia. Breast cancer screening Mammogram should be performed every 1-2 years starting at age 40 and every year starting at age 50. Screening may be started earlier depending on family history. Cholesterol screening Lipid panel (cholesterol test) should be checked every 5 years starting at age 45. Diabetes screening Fasting glucose (blood sugar) test should be performed every 3 years starting at age 45. Colorectal cancer screening Starting at age 50, women should have a screening colonoscopy at least every 10 years. Screening may be started earlier depending on family history. Thyroid screening Thyroid function test (TSH) should be checked every 5 years starting at age 50. Bone mineral density screening All postmenopausal women age 65 and over and postmenopausal women with risk factors for osteoporosis should have a bone mineral density test performed. Risk factors include race, family history of osteoporosis, personal history of fractures, poor nutrition, smoking, heavy alcohol use, early menopause, low calcium intake and low body weight. Certain medical conditions and long-term use of some medications may also increase risk. Disposition: Return in 1 year (on 10/24/2019) for Annual Exam. Follow-up and Disposition History Recorded Encounter Status:Closed by KELLY AGUIRRE MD on 10/24/18 PROGRESS Observed: 07/16/2018 Status: COMPLETED Source: [place] 1:30 PM [facility] REPOSITORY HNO ID: [id number] Author: Josias Rousseau (Bright) Eulogio Service: (none) Author Type: Physician Pipe Cleaner Type: Progress Notes Filed: 07/16/2018 5:25 PM Note Text: 33 year old female with c/o here to establish. Was seeing Dr. Iyer: left due to switch in practice. Diagnosed with MS at [facility]. Seeing neurologist in [facility]. Dr. Franklin, [facility]. Identified by water meter reader treating optic neuritis. MRI brain does at [facility]. Feeling well now. On monthly infusions Tysabri. Notes has had total paresthesia in right leg from hip to foot prior to optic neuritis. No bladder issues. HISTORIES FAMILY HISTORY Problem Relation Age of Onset - Heart Mother PACEMAKER/aortic aneurysm, age 40 - Hypertension Mother - other (Granuloma Annulare w/ ?Lupus) Mother - Diabetes Father - Hypertension Father - Lipids Father - Asthma Sister - Heart Sister - Hypertension Brother - Prostate Cancer Maternal Grandfather - other (Pemphigoid) Maternal Grandfather - Heart Paternal Grandfather ID - Breast Cancer Maternal Aunt - other (Lupus) Maternal Aunt - Cancer Paternal Uncle PANCREATIC PAST MEDICAL HISTORY Diagnosis Date - Gestational diabetes mellitus, class A1 04/01/2017 - NEGATIVE MEDICAL HISTORY PAST SURGICAL HISTORY Procedure Laterality Date - TONSILLECTOMY HX Social History Marital status: Spouse name: SANOTS Years of education: 14 Number of children: 3 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 Disp: Rfl: natalizumab (TYSABRI) 300 mg/15 mL injection Inject 300 mg intravenously once every month. Disp: Rfl: OMEGA-3S/DHA/EPA/FISH OIL (OMEGA 3 ORAL) Take by mouth. Andreas-3, Pt takes 2 softgels daily Disp: Rfl: Buwjbznd-Hy-Zus-Fe-FA ( VITAMIN) tab Take 1 tablet by mouth. Disp: Rfl: COMPOUNDED PRESCRIPTION Massage Therapy for Sciatic Pain Disp: 1 Each Rfl: 0 No current facility-administered medications for this visit. HPV EVERY 5 YEARS due on 2017 INFLUENZA(1) due on 06/14/2018 REVIEW OF SYMPTOMS: General: denies fatigue, unusual weight loss or gain, fevers, chills. Energy about what is expected; Sleep: not great. Eyes: denies change in vision, glaucoma, cataracts. Has glasses for distance but doesn't wears. EENT: MRI demonstrated maxillary and ethmoid sinusitis. denies recurrent sinus infection, unusual nasal drainage, hoarsemess, sore throat, or recurrent sore in mouth or tongue. 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 denies chest pain , SOB, palpitation, irregular or racing heart beats, orthopnea, leg swelling, history of rheumatic fever or prior heart conditions Respiratory: denies unusual cough, SOB, wheezing, history of recurrent bronchitis, pneumonia or tuberculosis. Denies day time drowsiness. No Snoring. No hx sleep apnea. GI: denies difficulty swallowing, nausea, vomiting, change in appetite. No change in bowel habits. Denies constipation, diarrhea, rectal bleeding or hemorrhoids, incontinence. No history of GERD, PUD, jaundice/hepatitis, GB disease, diverticulosis, colorectal cancer, hernias. Kidney/Bladder: Denies frequency, burning. Nocturia: none, incontinence: some stress incontinence.. No history of kidney stones, recurrent UTI or kidney infection. Menses regular 28-30, flow 6 days, moderate. Hx of ovarian cysts in 8th grade. No pelvic infection, no tubal , no abnormal pap. Skin: denies unusual rashes. No history of skin cancer, bleeding/changing moles, or unusual skin lesions. Neurologic: see HPI. Denies recurrent SHEIKH, change in vision, hearing or smell, tremors, unusual weakness, loss of sensation, or difficulty with balance or gait. No history of epilepsy/convulsions, migraine, head/spinal injuries, or stroke/TIA. Restless legs. Psychiatric: Mild issue with anxiety and crying, hyperventilating. denies unusual worry, moodiness, depression, suicidal ideation or unusual disturbance in relationships. No history of psychiatric illness. Endocrine: denies unusual thirst, hunger, excessive urination, change in skin or hair texture, emotional lability. No history of thryoid, pituitary or hormonal problems. Hematologic: denies unusual bleeding, bruising, or history of anemia or blood transfusion. Infections: denies risk factors for HIV, hepatitis or history of unusual infection. Immunizations are up to date. Musculoskeletal: Notes back and foot/ankle joint/muscle pain after tsabri infusions. denies unusual stiffness, muscles aches, joint pain, or swelling. Denies recurrent sprain or disruption of joints, debilitating arthritis, gout, or other musculoskeletal disease. Sciatica since . Attributes to injection steroid for hives from macrodantin. Hx back injury, spinal stenosis, radiculopathy. EXAM: BP 100/70 Pulse 88 Temp 36.8 ?C (98.3 ?F) (Tympanic) Resp 24 Ht 165 cm (5' 4.96) Wt 85.3 kg (188 lb) LMP 07/02/2018 (Exact Date) ? No BMI 31.32 kg/m? Pleasant adult woman in no acute distress. Alert and oriented all spheres. Normal affect and cognition. Speech normal. No deficits to learning or comprehension. Skin warm, dry, pink to lips and nailbeds. Normal turgor. Respirations regular and unlabored. HEENT WNL. TM's clear. Nose and oropharynx free from injection or lesion. No cervical lymph nodes. Thyroid non-tender, no masses Chest CTA. HRRR without murmur or gallop. Abdomen: active bowel sounds throughout, soft, nontender, no masses or organomegaly. No CVAT. Extrem: no clubbing, cyanosis, edema. Extremities are warm and pink with prompt capillary refill. ASSESSMENT/PLAN: 1. Multiple sclerosis (HCC) - ICD9: 340, ICD10: G35 (primary diagnosis) Currently asymtpomatic Following with neuro monthly. 2. Vitamin D deficiency - ICD9: 268.9, ICD10: E55.9 Recheck in next month - VITAMIN D 25 HYDROXY F/u prn and in 1 year. BRIGHT Mejia Observed: 07/16/2018 Status: COMPLETED Source: [place] 1:00 PM [facility] REPOSITORY Office Visit (FAMPWS) EULALIOARGENIS ([id number]) 1985 F Date Time Provider Department 07/16/18 1:00 PM Josias KRISHNAN) PRICILAWS During your visit today, we recorded the following information about you: Temperature Pulse Respiration Blood pressure 98.3 degrees 88/minute 24/minute 100/70 Weight Height Last Period 85.3 kg 1.65 m 07/02/18 Josias Krishnan PA-C 07/16/2018 5:25 PM Signed 33 year old female with c/o here to establish. Was seeing Dr. Iyer: left due to switch in practice. Diagnosed with MS at [facility]. Seeing neurologist in [facility]. Dr. Franklin, [facility]. Identified by water meter reader treating optic neuritis. MRI brain does at [facility]. Feeling well now. On monthly infusions Tysabri. Notes has had total paresthesia in right leg from hip to foot prior to optic neuritis. No bladder issues. HISTORIES FAMILY HISTORY Problem Relation Age of Onset - Heart Mother PACEMAKER/aortic aneurysm, age 40 - Hypertension Mother - other (Granuloma Annulare w/ ?Lupus) Mother - Diabetes Father - Hypertension Father - Lipids Father - Asthma Sister - Heart Sister - Hypertension Brother - Prostate Cancer Maternal Grandfather - other (Pemphigoid) Maternal Grandfather - Heart Paternal Grandfather ID - Breast Cancer Maternal Aunt - other (Lupus) Maternal Aunt - Cancer Paternal Uncle PANCREATIC PAST MEDICAL HISTORY Diagnosis Date - Gestational diabetes mellitus, class A1 04/01/2017 - NEGATIVE MEDICAL HISTORY PAST SURGICAL HISTORY Procedure Laterality Date - TONSILLECTOMY HX Social History Marital status: Spouse name: SANTOS Years of education: 14 Number of children: 3 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 Disp: Rfl: natalizumab (TYSABRI) 300 mg/15 mL injection Inject 300 mg intravenously once every month. Disp: Rfl: OMEGA-3S/DHA/EPA/FISH OIL (OMEGA 3 ORAL) Take by mouth. Andreas-3, Pt takes 2 softgels daily Disp: Rfl: Zjwcybps-Gg-Mwm-Fe-FA ( VITAMIN) tab Take 1 tablet by mouth. Disp: Rfl: COMPOUNDED PRESCRIPTION Massage Therapy for Sciatic Pain Disp: 1 Each Rfl: 0 No current facility-administered medications for this visit. HPV EVERY 5 YEARS due on 2017 INFLUENZA(1) due on 06/14/2018 REVIEW OF SYMPTOMS: General: denies fatigue, unusual weight loss or gain, fevers, chills. Energy about what is expected; Sleep: not great. Eyes: denies change in vision, glaucoma, cataracts. Has glasses for distance but doesn't wears. EENT: MRI demonstrated maxillary and ethmoid sinusitis. denies recurrent sinus infection, unusual nasal drainage, hoarsemess, sore throat, or recurrent sore in mouth or tongue. 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 denies chest pain , SOB, palpitation, irregular or racing heart beats, orthopnea, leg swelling, history of rheumatic fever or prior heart conditions Respiratory: denies unusual cough, SOB, wheezing, history of recurrent bronchitis, pneumonia or tuberculosis. Denies day time drowsiness. No Snoring. No hx sleep apnea. GI: denies difficulty swallowing, nausea, vomiting, change in appetite. No change in bowel habits. Denies constipation, diarrhea, rectal bleeding or hemorrhoids, incontinence. No history of GERD, PUD, jaundice/hepatitis, GB disease, diverticulosis, colorectal cancer, hernias. Kidney/Bladder: Denies frequency, burning. Nocturia: none, incontinence: some stress incontinence.. No history of kidney stones, recurrent UTI or kidney infection. Menses regular 28-30, flow 6 days, moderate. Hx of ovarian cysts in 8th grade. No pelvic infection, no tubal , no abnormal pap. Skin: denies unusual rashes. No history of skin cancer, bleeding/changing moles, or unusual skin lesions. Neurologic: see HPI. Denies recurrent SHEIKH, change in vision, hearing or smell, tremors, unusual weakness, loss of sensation, or difficulty with balance or gait. No history of epilepsy/convulsions, migraine, head/spinal injuries, or stroke/TIA. Restless legs. Psychiatric: Mild issue with anxiety and crying, hyperventilating. denies unusual worry, moodiness, depression, suicidal ideation or unusual disturbance in relationships. No history of psychiatric illness. Endocrine: denies unusual thirst, hunger, excessive urination, change in skin or hair texture, emotional lability. No history of thryoid, pituitary or hormonal problems. Hematologic: denies unusual bleeding, bruising, or history of anemia or blood transfusion. Infections: denies risk factors for HIV, hepatitis or history of unusual infection. Immunizations are up to date. Musculoskeletal: Notes back and foot/ankle joint/muscle pain after tsabri infusions. denies unusual stiffness, muscles aches, joint pain, or swelling. Denies recurrent sprain or disruption of joints, debilitating arthritis, gout, or other musculoskeletal disease. Sciatica since . Attributes to injection steroid for hives from macrodantin. Hx back injury, spinal stenosis, radiculopathy. EXAM: BP 100/70 Pulse 88 Temp 36.8 ?C (98.3 ?F) (Tympanic) Resp 24 Ht 165 cm (5' 4.96) Wt 85.3 kg (188 lb) LMP 07/02/2018 (Exact Date) ? No BMI 31.32 kg/m? Pleasant adult woman in no acute distress. Alert and oriented all spheres. Normal affect and cognition. Speech normal. No deficits to learning or comprehension. Skin warm, dry, pink to lips and nailbeds. Normal turgor. Respirations regular and unlabored. HEENT WNL. TM's clear. Nose and oropharynx free from injection or lesion. No cervical lymph nodes. Thyroid non-tender, no masses Chest CTA. HRRR without murmur or gallop. Abdomen: active bowel sounds throughout, soft, nontender, no masses or organomegaly. No CVAT. Extrem: no clubbing, cyanosis, edema. Extremities are warm and pink with prompt capillary refill. ASSESSMENT/PLAN: 1. Multiple sclerosis (HCC) - ICD9: 340, ICD10: G35 (primary diagnosis) Currently asymtpomatic Following with neuro monthly. 2. Vitamin D deficiency - ICD9: 268.9, ICD10: E55.9 Recheck in next month - VITAMIN D 25 HYDROXY F/u prn and in 1 year. BRIGHT Mejia PA-C 07/16/2018 2:21 PM Signed Please return to the office on approximately 1 years. Open access hours are: Saturday 8 am-6 pm Saturday 8 am-4 pm Saturday 8 am-4 pm 8 am-6 pm Saturday 8 am-4 pm Referring Provider: SELF [200] Allergies As of Date: 07/16/2018 Noted Allergy Reaction MACRODANTIN (NITROFURANTOIN MACRO*04/12/2014 4 - Hives 12 - Shortness of Breath Comments: TACHYCARDIA SULFA (SULFONAMIDE ANTIBIOTICS) 04/12/2014 4 - Hives Date Reviewed: 07/16/2018 Reviewed by: Jackie Viramontes LPN - Fully Assessed Reason for Visit: Establish Care [42] Primary Visit Diagnosis:Multiple sclerosis (HCC) [G35] Other Visit Diagnosis:Vitamin D deficiency [E55.9] Order(s):VITAMIN D 25 HYDROXY [SQVITD] Order #: [id number] FUTURE Prescriptions as of 07/16/2018 Sig: CHOLECALCIFEROL (VITAMIN D3) * Take 2 capsules by mouth once* NATALIZUMAB 300 MG/15 ML INTR* Inject 300 mg intravenously o* OMEGA 3 ORAL Take by mouth. Omeg* VITAMIN,CALCIUM,MINE* Take 1 tablet by mouth. COMPOUNDED PRESCRIPTION Massage Therapy for Sciatic P* Problem List As Of Date 07/16/2018 Noted Resolved Family history of congenital heart defect [Z82.*INVALID FOR*07/25/2017 More... Family history of cystic fibrosis [Z83.49] INVALID FOR*07/25/2017 More... Vaginal discharge in [O26.899, N89.8] INVALID FOR*04/28/2014 More... More... More... History of oligohydramnios in prior , *INVALID FOR*07/25/2017 Encounter for supervision of normal i*INVALID FOR*07/25/2017 Abnormal glucose affecting [O99.810] INVALID FOR*07/25/2017 More... Gestational diabetes mellitus, class A1 [O24.41*INVALID FOR*07/25/2017 Multiple sclerosis (HCC) [G35] INVALID FOR* More... Other instructions from your clinician: Please return to the office on approximately 1 years. Open access hours are: Saturday 8 am-6 pm Saturday 8 am-4 pm Saturday 8 am- 4 pm 8 am- 6 pm Saturday 8 am-4 pm Encounter Status:Closed by Josias KRISHNAN PA-C on 07/16/18 PROGRESS Observed: 02/17/2018 Status: COMPLETED Source: [place] 3:40 PM [facility] REPOSITORY HNO ID: [id number] Author: Aracelis Leyva Service: (none) Author Type: Physician Type: Progress Notes Filed: 02/17/2018 3:40 PM Note Text: The Vitamin D is low, please start taking or add 4000IU Vitamin D3 daily to your current dose, we are looking for a blood level near 75. Your current Vitamin D dose is 0 so your new total daily dose of Vitamin D3 is 4000 IU per day. If you live in [place] area: #GetactiveCle Explore your park for Wellness Free exercise Find your closest park! Find the top ten ways to Get Active! [email or web address] COMP METABOLIC PANEL Collected: 02/13/2018 Status: F Source: [place] 12:36 PM [facility] REPOSITORY TYPE CODE TESTS RESULT OUT OF REFERENCE UNITS RANGE LAB TP 6.3-8.0 g/dL Protein, Total 7.6 LAB ALB 3.9-4.9 g/dL Albumin 4.4 LAB CA 8.5-10.2 mg/dL Calcium, Total 8.9 LAB TBIL 0.2-1.3 mg/dL Bilirubin, Total 0.3 LAB ALKP 32-117 U/L Alkaline Phosphatase 45 LAB AST 13-35 U/L AST 22 LAB GLU 74-99 mg/dL Glucose 76 Result Comment: The [place] Diabetes Association (ADA) provides guidance for cutoff values for fasting glucose and random glucose. The ADA defines fasting as no caloric intake for at least 8 hours. Fas ting plasma glucose results between 100 to 125 mg/dL indicate increased risk for diabetes (prediabetes). Fasting plasma glucose results greater than or equal to 126 mg/dL meet the criteria for diagnosis of diabetes. In the absence of unequivocal hyperglycemia, results should be confirmed by repeat testing. In a patient with classic symptoms of hyperglycemia or hyperglycemic crisis, random plasma glucose results greater than or equal to 200 mg/dL meet the criteria for diagnosis of diabetes. Reference: Standards of Medical Care in Diabetes 2016, [place] Diabetes Association. Diabetes Care. 2016.39(Suppl 1). LAB BUN 7-21 mg/dL BUN 9 LAB CRET 0.58-0.96 mg/dL Creatinine 0.61 LAB NA 136-144 mmol/L Sodium 139 LAB K 3.7-5.1 mmol/L Potassium 3.9 LAB CL 97-105 mmol/L Chloride 98 LAB CO2 22-30 mmol/L CO2 24 LAB AGAP 9-18 mmol/L Anion Gap 17 LAB ALT 7-38 U/L ALT 16 LAB GFRAA eGFR- Amer. >60 LAB GFRNAA . eGFR-All Other Races >60 Result Comment: eGFR (Estimated GFR) Units of measure: mL/min/1.73 meters squared eGFR is derived from the reexpressed MDRD Study equation using the following parameters: serum creatinine, age, gender and race. The creatinine assay has been calibrated to be traceable to IDMS. An eGFR <60 mL/min/1.73m2 for >3 months is consistent with chronic kidney disease. Refer to KDOQI guidelines for clinical interpretation. In patients with unstable renal function, e.g. those with acute kidney injury, the eGFR may not accurately reflect actual GFR. Performed By: #### CMP, CBCDIF, HIV12C, VITD, HREMOP, INFTBG #### [facility] [address] [place], [place] [address] CBC AND DIFFERENTIAL Collected: 02/13/2018 Status: F Source: [place] 12:36 PM [facility] REPOSITORY TYPE CODE TESTS RESULT OUT OF REFERENCE UNITS RANGE LAB WBC 3.70-11.00 k/uL WBC 10.34 LAB RBC 3.90-5.20 m/uL RBC 4.25 LAB HGB 11.5-15.5 g/dL Hemoglobin 13.0 LAB HCT 36.0-46.0 % Hematocrit 39.8 LAB MCV 80.0-100.0 fL MCV 93.6 LAB MCH 26.0-34.0 pG MCH 30.6 LAB MCHC 30.5-36.0 g/dL MCHC 32.7 LAB RDWCV 11.5-15.0 % RDW-CV 12.5 LAB PLTCT 150-400 k/uL Platelet Count 343 LAB MPV 9.0-12.7 fL MPV 11.5 LAB ANEUT % Neut% 61.6 LAB AANEUT 1.45-7.50 k/uL Abs Neut 6.37 LAB ALYMP % Lymph% 29.7 LAB AALYMP 1.00-4.00 k/uL Abs Lymph 3.07 LAB AMONO % Sarpy% 6.3 LAB AAMONO <0.87 k/uL Abs Sarpy 0.65 LAB AEOS % Eosin% 1.5 LAB AAEOS <0.46 k/uL Abs Eosin 0.16 LAB ABASO % Baso% 0.9 LAB AABASO <0.11 k/uL Abs Baso 0.09 LAB AUNRBC 0 /100 WBC NRBCs 0.0 LAB ABNRBC <0.01 k/uL Absolute nRBC <0.01 LAB DTYP DTYPE Auto Diff Performed By: #### CMP, CBCDIF, HIV12C, VITD, HREMOP, INFTBG #### [facility] [address] [place], [place] [address] HIV 12 COMBO (AG/AB) Collected: 02/13/2018 Status: F Source: [place] 12:36 [facility] REPOSITORY TYPE CODE TESTS RESULT OUT OF REFERENCE UNITS RANGE LAB HVAGAB Non Reactive HIV Non Reactive 12 Ag/Ab Result Comment: (NOTE) HIV Information: Lewis Rev. Code 3701.243(E): This information has been disclosed to you from confidential records protected from disclosure by state law. You shall make no further disclosure of this information without the specific, written, and informed release of the individual to whom it pertains, or as otherwise permitted by state law. A general authorization for the release of medical or other information is not sufficient for the purpose of the release of HIV test results or diagnoses. Performed By: #### CMP, CBCDIF, HIV12C, VITD, HREMOP, INFTBG #### [facility] [address] [place], [place] [address] VITAMIN D 25 HYDROXY Collected: 02/13/2018 Status: F Source: [place] 12:36 PM [facility] REPOSITORY TYPE CODE TESTS RESULT OUT OF REFERENCE UNITS RANGE LAB VITD 31.0-80.0 ng/mL Low Vitamin D 25 22.1 Hydroxy Result Comment: Classification of 25 [place] Vitamin D status: Insufficiency/Moderate Deficiency: < or = 30 ng/mL Sufficiency/Optimal Levels: 31 to 80 ng/mL Toxicity: > 100 ng/mL Test performed by chemiluminescent immunoassay. Performed By: #### CMP, CBCDIF, HIV12C, VITD, HREMOP, INFTBG #### [facility] [address] [place] [address] HEPATITIS REMOTE PANEL Collected: 02/13/2018 Status: F Source: [place] 12:36 PM [facility] REPOSITORY TYPE CODE TESTS RESULT OUT OF RANGE REFERENCE UNITS LAB AHBCOT Negative Hep B Core Negative Ab,Total LAB AHCV Negative Hepatitis C Ab Negative IA LAB HBSAGR Negative HBsAg Negative LAB AHBSAG Negative Abnormal HepB Surface Positive Alert Ab,Qual Result Comment: These results are consistent with previous exposure and/or immunity to the hepatitis B virus antigen. Performed By: #### CMP, CBCDIF, HIV12C, VITD, HREMOP, INFTBG #### [facility] [address] [place] [address] TB BY QUANTIFERON Collected: 02/13/2018 Status: F Source: [place] 12:36 PM [facility] REPOSITORY TYPE CODE TESTS RESULT OUT OF REFERENCE UNITS RANGE LAB TBGRES Negative TB Result Negative LAB TBGUI <0.35 IU/mL TB Antigen 0.01 Response LAB TBGMIT >0.49 IU/mL Mitogen >10.00 Response LAB TBGINT Interpretation No evidence of current or previous infection with Mycobacterium tuberculosis. Performed By: #### CMP, CBCDIF, HIV12C, VITD, HREMOP, INFTBG #### [facility] [address] [place] [address] BREAST LIMITED Observed: 02/11/2018 Status: F Source: [place] UNILATERAL 9:46 AM [facility] REPOSITORY [facility] [address] [place] [address] Breast Limited Unilateral MR#: [id number] Acct: [id number] Name: ARGENIS TSAI Mary Rep #: [id number] : 1985 F 33 From: Dylon Reyes MD PCP: Aracelis Hurd NP Status: REG CLI Study: Breast Limited Unilateral Date of Exam: 02/11/18 Exam# [id number] Ordering Dr: Natividad Viramontes MD STUDY: ULTRASOUND BREAST - LEFT REASON FOR EXAM: Female, 33 years old. BREAST MASS ON CT PT HAD MAMMO TODAY ALSO TECHNIQUE: Axial and longitudinal images of the LEFT breast were performed with a high resolution ultrasound transducer. COMPARISON: None. FINDINGS: LEFT Breast: There is a cystic lesion in the retroareolar region. The lesion measures 1.7 x 1.5 x 0.7 cm in size. Posterior Enhancement: Yes. Posterior Shadowing: None. Margins: Sharp and smooth. Echogenicity: Anechoic. Compression effect on Shape: No change. US/Breast Limited Unilateral IMPRESSION: Benign retroareolar cystic lesion measures 1.7 x 1.5 x 0.7 cm. ASSESSMENT CATEGORY: BIRADS Category 2: Benign. A letter regarding these results will be sent to the patient by the facility within 30 days. Electronically Signed: Dylon Reyes MD at 14:24 EDT Tel , Service support , CC: Aracelis Hurd NP; Natividad Viramontes MD Account Manager Trainee: Signed DIAG MAMM W/CAD, Observed: 02/11/2018 Status: F Source: [place] BILAT 9:46 AM [facility] REPOSITORY [facility] [address] [place] [address] DIAG MAMM W/CAD, BILAT MR#: [id number] Acct: [id number] Name: ARGENIS TSAI Rep #: [id number] : 1985 F 33 From: Dylon Reyes MD PCP: Aracelis Hurd NP Status: REG CLI Study: DIAG MAMM W/CAD, BILAT Date of Exam: 02/11/18 Exam# [id number] Ordering Dr: Natividad Viramontes MD MAMMOGRAPHY - BILATERAL DIAGNOSTIC REASON FOR EXAM: Female, 33 years old. BASELINE EXAM PERTINENT HISTORY: CT SCAN DONE 02/06/17 FOUND LEFT BREAST MASS 2.3CM -NOT PALPABLE NO SX QUIT BREAST FEEDING IN NOV 2017 TECHNIQUE: Digital bilateral breast isaac (3D mammographic acquisition) in the CC and MLO projections. 2-D mediolateral oblique (MLO) and craniocaudad (CC) views of both breasts were obtained. CAD: Full Field Digital Mammography with Computer Added Detection was performed. COMPARISON: None. FINDINGS: Breast Composition: The breasts are heterogeneously dense, which may obscure small masses. There are no dominant masses or suspicious calcifications. The described mass noted on CT scan is not seen on this study. Further evaluation by ultrasound of the retroareolar region of the left breast is recommended and is performed on the same day. No other significant abnormalities are identified. BI/DIAG MAMM W/CAD, BILAT IMPRESSION: Further ultrasonographic evaluation recommended, as described above. (I) ASSESSMENT CATEGORY: BIRADS Category 0: Incomplete. Need additional imaging evaluation. A letter regarding these results will be sent to the patient by the facility within 30 days. Approximately 10% of breast cancers are not detected by mammography. A normal mammogram should not delay biopsy of a clinically suspicious abnormality. Electronically Signed: Dylon Reyes MD at 15:22 EDT Tel , Service support , CC: Aracelis Hurd NP; Natividad Viramontes MD Account Manager Trainee: Signed EMERGENCY DEPARTMENT Observed: 02/09/2018 Status: F Source: [place] SUMMARY 1:00 AM [facility] [place] REPOSITORY [facility] Medical Records Department [address] [place] [id number] Emergency Department Summary 02/06/18 0845 MR#: [id number] Acct: [id number] Name: ARGENIS TSAI Rep #: [id number] : 1985 33 From: Dillon Soto MD PCP: Aracelis Hurd NP Status: DEP ER - ER Visit Summary Date of Service: 02/06/18 Chief Complaint: Abdominal pain History of Present Illness: The patient is a 33 F who sees Aracelis Lorenzo. She reports that she has abdominal pain began at 4:00 this morning. Today cramping, twisting diffuse pain is 10 out of 10 at worst a 10 currently. Is worsened by nothing. Is relieved transiently by diarrhea. She has been nausea and vomited 6-7 times. No blood or emesis. She has had 6-7 episodes of diarrhea. No blood in her stools or black tarry stools. Patient denies sick contacts. Has not been camping out of the country. No possible bad food exposure. Does drink well water but others at home due as well and they are not ill. No recent antibiotic use. She reports that she had similar symptoms over last weekend as well. Physical Examination: Vitals: Stable. Afebrile. General: Well-nourished and well-developed. Head: Normocephalic atraumatic. Neck: Supple, no lymphadenopathy. No JVD. Nontender. Cardiovascular: Regular rate and rhythm. No murmurs. Respiratory: No respiratory distress. Clear to auscultation bilaterally. Abdominal: Soft, mild diffuse sinus palpation that is worst in the epigastric region no Correa sign, nondistended, normal bowel sounds. No guarding, rebound, or peritoneal signs. Back: Nontender. Extremities: Nontender, no edema. Skin: Normal color, no rash. Neurologic: Alert and oriented 3. Cranial nerves II through XII are intact. Normal strength and sensation. Psych: Normal affect. Test Results: CBC is marked for white count of 17.6 with 86 7 neutrophils and 8 lymphocytes. Chem-7 is normal. LFTs marked for an AST of 13. Lipase normal. test negative. CT flank shows normal appendix, multiple fluid filled non-dilated small bowel loops consistent with enteritis. Normal colon. Biliary sludge with no inflammation. A 2.3 cm subareolar left breast mass. Emergency Department Course and Treatment: Patient had an IV placed. She was given a there are of normal saline, Toradol, morphine, and Zofran IV. She is resting comfortably. She has had no diarrhea while here. Treatment Plan: Patient was discussed with Dr. Colbert who states that she will speak with Dr. Whipple and then call the patient regarding further imaging of this breast mass. She will be discharged with Zofran and Arvada for the diarrhea and abdominal pain. Instructed to follow-up Aracelis Lorenzo in 1-2 days if that is not improving. Return to the emergency department for any worsening symptoms. Disposition: To home in improved and stable condition. Impression: 1. Vomiting/diarrhea. 2. Biliary sludge. 3. 2.3 cm subareolar left breast mass. This note was generated with Might[employer] dictation software. It may contain incorrect words, spelling, and punctuation that were not noted in review of the chart prior to signing ED Disposition - Plan for ED Patient: Disposition: Home or Assisted Living Chief Complaint: Abd Pain Instructions: ED Breast Mass Uncertain Cause, ED Vomiting Diarrhea Nonspecific Ad Prescriptions: Hydrocodone Bitart/Apap 5-325 [Arvada 5/325] 1 - 2 tablet PO Q4H PRN PRN 3 Days #12 tablet PRN Reason: Pain Ondansetron [Zofran Odt] 4 mg PO Q8H PRN PRN #10 tablet PRN Reason: Nausea Referrals: Aracelis Hurd [Primary Care Provider] - 1-2 Days if not improving Kelly Lofton MD [STAFF PHYSICIAN] - As soon as possible What to do if you have Problems For any increased pain, shortness of breath, bleeding, nausea or vomiting, chest pain, or any unexpected problems, contact your Primary Care Provider. Call [facility] ([phone]) or report to the closest Emergency Room. Call 911 if necessary. 02/09/18 0100 <Electronically signed by Dillon Soto MD> Date Dillon Soto MD Cosigner Signature (If Indicated): Date CC: Aracelis Hurd WARDROBE SPECIALTY WORKER CNPN Observed: 02/07/2018 Status: COMPLETED Source: [place] 12:00 AM [facility] REPOSITORY Telephone (WOOB) ARGENIS TSAI ([id number]) 1985 F Date Time Provider Department 02/07/18 NELL COLBERT During your visit today, we recorded the following information about you: Socorro Romano RN 02/07/2018 12:50 PM Signed Patient calling into office to see if any decision was made in regards to a plan of care for her. Patient was seen in [facility] ER yesterday and a CT was done and showed a mass in her left breast. Patient states Dr. Colbert, the physician technical applications scientist yesterday was consulted and provider was going to consult with Dr. Lau. Patient notified that ER reports and CT scan would be given to provider technical applications scientist to review and we will call her back with a plan of care. After talking to patient, Dr. Colbert called into office to notify office of this patient and is requesting that reports be looked over by provider technical applications scientist since she is out of office until Saturday. CT report and ER notes printed and in [address] for review. Please address if diagnostic mammogram/ultrasound is first step or if consult to general surgery needs ordered. Socorro Viramontes MD 02/07/2018 1:41 PM Signed Is she still ? Could be related to this if she is or could be a fibroadenoma. Get US and mammogram of the breast and go from there. General surgery usually likes breast specific imaging before a consult. Please schedule. Thanks. MD Marianne Martinez RN 02/07/2018 2:06 PM Signed Patient is no longer breast feeding. Stopped 2 1/2 months ago. Notified of needing additional imaging. Transferred to [facility] to schedule diagnostic and u/s. Patient did not voice any other concerns. Marianne Dugan RN Marsha Barron RN 02/07/2018 3:07 PM Signed Patient wants to proceed with diagnostic mammogram/ultrasound at [facility]. Scheduled for 02/11/18 at 9:45am. Order to Dr. Viramontes to sign then will fax to [facility]. Patient plans to follow up with Dr. Nj for general surgeon as well. Marsha Barron RN Allergies As of Date: 02/07/2018 Noted Allergy Reaction MACRODANTIN (NITROFURANTOIN MACRO*04/12/2014 4 - Hives 12 - Shortness of Breath Comments: TACHYCARDIA SULFA (SULFONAMIDE ANTIBIOTICS) 04/12/2014 4 - Hives Date Reviewed: 02/04/2018 Reviewed by: Carly ([facility]) Guillermo - Fully Assessed Reason for Visit: ER F/U [41] Primary Visit Diagnosis:Mass of breast, left [N63.20] Order(s):[facility] [0331516] Order #: [id number] FUTURE US BREAST LTD LT [[id number]] Order #: [id number] FUTURE Prescriptions as of 02/07/2018 Sig: COMPOUNDED PRESCRIPTION Massage Therapy for Sciatic P* OMEGA 3 ORAL Take by mouth. Omeg* VITAMIN,CALCIUM,MINE* Take 1 tablet by mouth. Problem List As Of Date 02/07/2018 Noted Resolved Family history of congenital heart defect [Z82.*INVALID FOR*07/25/2017 More... Family history of cystic fibrosis [Z83.49] INVALID FOR*07/25/2017 More... Vaginal discharge in [O26.899, N89.8] INVALID FOR*04/28/2014 More... More... More... History of oligohydramnios in prior , *INVALID FOR*07/25/2017 Encounter for supervision of normal i*INVALID FOR*07/25/2017 Abnormal glucose affecting [O99.810] INVALID FOR*07/25/2017 More... Gestational diabetes mellitus, class A1 [O24.41*INVALID FOR*07/25/2017 Multiple sclerosis (HCC) [G35] INVALID FOR* Encounter Status:Closed by MARIANNE DUGAN RN on 02/07/18 ABDOMEN/PELVIS WITHOUT Observed: 02/06/2018 Status: F Source: ANYA CONT 9:52 AM [facility] [place] REPOSITORY [facility] Imaging Services [address] [place] [address] Abdomen/Pelvis without Cont MR#: [id number] Acct: [id number] Name: ARGENIS TSAI Rep #: [id number] : 1985 F 33 From: Renzo Victor MD PCP: Aracelis Hurd NP Status: REG ER Study: Abdomen/Pelvis without Cont Date of Exam: 02/06/18 Exam# [id number] Ordering Dr: Dillon Soto MD STUDY: CT ABDOMEN AND PELVIS WITHOUT CONTRAST REASON FOR EXAM: Female, 33 years old. Diarrhea and pain x3 days. RADIATION DOSAGE (If Supplied By Facility): CTDIvol = ( 13.89 ) mGy, DLP = ( 679.95 ) mGycm TECHNIQUE: Transaxial images were obtained from the dome of the diaphragm to the symphysis pubis without oral contrast, and without intravenous contrast. Sagittal and coronal images were reconstructed. Individualized dose optimization techniques were used for this CT. COMPARISON: None. FINDINGS: There appears to be a 2.3 cm subareolar left breast mass. Recommend correlation with mammography and ultrasound. The visualized lung bases are unremarkable. The visualized portions of the heart are within normal limits. Normal liver. Mildly high density materials layering within the gallbladder. No gallstones are evident. There is no pericholecystic fluid. There is no gallbladder wall thickening. Intrahepatic and extra hepatic bile ducts appear unremarkable. Normal spleen. Normal pancreas. Normal bilateral adrenal glands. Normal right kidney. Normal left kidney. Normal visualized stomach. There multiple fluid-filled nondilated small bowel loops, predominantly within the low abdomen/upper pelvis. Normal colon. The appendix is visualized and appears normal. There is no free fluid. There is no free air. Normal abdominal aorta. Normal inferior vena cava. Normal retroperitoneum. Normal urinary bladder. Normal abdominal wall. Normal osseous structures. CT/Abdomen/Pelvis without Cont IMPRESSION: Multiple fluid-filled nondilated small bowel loops within the low abdomen/upper pelvis. Consider enteritis. No evident obstruction. No free air. No free fluid. Gallbladder sludge. Left subareolar breast mass. Recommend correlation with mammography and sonography. Electronically Signed: Renzo Victor MD at 10:37 EDT , Service support , CC: Aracelis Hurd WARDROBE SPECIALTY WORKER; Dillon Soto MD Account Manager Trainee: Signed CBC W/DIFF, AUTOMATED Collected: 02/06/2018 Status: C Source: ANYA 8:51 AM [facility] [place] REPOSITORY TYPE CODE TESTS RESULT OUT OF RANGE REFERENCE UNITS LAB L100.1000 4.4-11.0 K/mm3 High WBC 17.6 LAB L100.1200 4.2-5.4 M/mm3 Normal RBC 4.87 LAB L100.1300 12.0-15.0 g/dl Normal HGB 14.7 LAB L100.1400 37-47 % Normal HCT 42.4 LAB L100.1500 81-99 fL Normal MCV 87.1 LAB L100.1600 27.0-32.0 pg Normal MCH 30.2 LAB L100.1700 32-36 g/gl Normal MCHC 34.7 LAB L100.1810 11.6-14.6 % Normal RDW CV 12.3 LAB L100.1820 35.1-43.9 fl Normal RDW SD 38.7 LAB L100.1900 150-450 K/mm3 Normal PLT 375 LAB L100.2000 6.2-12.0 fl Normal MPV 10.4 LAB L100.2100 47-70 % High NEUT% 86.3 LAB L100.2200 19-41 % Low LY% 7.9 LAB L100.2300 0-10 % Normal MONO% 4.7 LAB L100.2400 0-5 % Normal EO% 0.6 LAB L100.2500 0-1 % Normal BASO% 0.3 LAB L100.2550 0.0-0.9 % Normal IM GRAN % 0.200 Result Comment: IG% - Immature Granulocytes (promyelocytes, myelocytes and metamyelocytes) > 1% indicates that a LEFT SHIFT is Present. LAB L100.2620 2.0-7.7 X10 3/uL High Absolute Neut 15.2 LAB L100.2720 0.83-4.51 X10 3/ul Normal Absolute Lymph 1.38 LAB L100.4500 Normal SMEAR COMMENT COMMENT Result Comment: SLIDE SCANNED - 1+ ATYPICAL LYMPHS, RARE PLASMA CELLS, PATHOLOGY TO REVIEW. LAB L100.9900 Normal Reviewed PATH REV Result Comment: Neutrophilic leukocytosis. Clinical correlation necessary. Higinio Srivastava M.D. 02/11/18 AMENDED REPORT 02/11/18 0933 PATH REV previously reported as: February rian Performed By: #### L100.0100 #### [facility] [address] [place], [address] COMPREHENSIVE METABOLIC Collected: 02/06/2018 Status: F Source: [facility] 8:51 AM [facility] REPOSITORY TYPE CODE TESTS RESULT OUT OF RANGE REFERENCE UNITS LAB L501.0100 74-106 mg/dL Normal GLU 93 Result Comment: Please note revised GLUCOSE reference range effective 2017. LAB L501.1000 7-18 mg/dL Normal BUN 10 LAB L501.1100 0.55-1.02 mg/dL Normal CREAT,SERUM 0.72 Result Comment: The validity of the calculated GFR AND GFRAA in patients over 70 years has not been determined. Clinical correlation is essential. LAB L501.1110 >60 mL/min Normal EST GFR 101 Result Comment: Non- GFR Calc LAB L501.1115 >60 mL/min Normal EST GFR - AA 122 Result Comment: GFR Calc LAB L501.1255 ml/min Normal Estimated CRCL 105.98 LAB L501.1300 10-20 RATIO BUN/CRE Normal 13.9 LAB L501.1500 6.4-8. g/dL 2 T PROT Normal 8.1 LAB L501.1800 3.2-5. g/dL 0 ALB Normal 4.2 LAB L501.1950 2.2-4. g/dL 2 GLOB Normal 3.9 LAB L501.2000 0.9-2. RATIO 4 A/G Normal 1.1 LAB L501.2200 8.5-10 mg/dL .1 CA Normal 9.0 LAB L501.4100 15-37 U/L Low AST 13 LAB L501.4305 45-117 U/L ALK P Normal 57 LAB L501.4405 13-56 U/L ALT Normal 22 LAB L501.4600 0.20-1 mg/dL .00 T BILI Normal 0.50 LAB L501.5300 136-14 mmol/L 5 NA Normal 139 LAB L501.5600 3.5-5. mmol/L 1 K Normal 3.9 LAB L501.5900 98-107 mmol/L CL Normal 105 LAB L501.6100 21.0-3 mmol/L 2.0 CO2 Normal 26.0 LAB L501.6200 5-15 GAP Normal 8 Performed By: #### L500.4050, L501.2450 #### [facility] [address] [place], [place], [id number] LIPASE Collected: 02/06/2018 Status: F Source: [place] 8:51 AM [facility] REPOSITORY TYPE CODE TESTS RESULT OUT OF RANGE REFERENCE UNITS LAB L501.2450 73-393 U/L Normal LIPASE 156 Performed By: #### L500.4050, L501.2450 #### [facility] [address] [place], [place], [id number] ,SERUM,HCG QUALI. Collected: Status: F Source: [place] 02/06/2018 8:51 AM [facility] REPOSITORY TYPE CODE TESTS RESULT OUT OF REFERENCE UNITS RANGE LAB L700.7000 0-9 Nonpreg Negative Normal HCGSQUAL NEGATIVE LAB L700.6700 =>Qualitative mIU/mL Normal HCG Qual < 1 triggr Performed By: #### L700.6800 #### [facility] [address] [place], [place], [address] PROGRESS Observed: 02/04/2018 Status: COMPLETED Source: [place] 3:31 PM [facility] REPOSITORY HNO ID: [id number] Author: Carly (Thao) Guillermo Service: (none) Author Type: Nurse Practitioner Type: Progress Notes Filed: 02/04/2018 5:37 PM Note Text: [facility] MULTIPLE SCLEROSIS FOLLOWUP/ESTABLISHED PATIENT VISIT PRINCIPAL NEUROLOGIC DIAGNOSIS: Multiple Sclerosis Date of onset: 11/17/17, ON Date of diagnosis of MS: 11/26/17 Disease course at onset: Relapsing-Remitting Current disease course: Relapsing-Remitting Previous disease therapies: None Current disease therapy: None Most recent MRI brain: 11/19/17 - 7 nestor enhancing lesions including nestor enhancing R ON. Most recent MRI cervical spine: 12/13/17- Tiny disc protrusions at the lower cervical levels without significant canal or foraminal narrowing noted. No evidence of cord signal abnormality or abnormal enhancement. Otherwise, unremarkable MRI cervical spine with and without contrast. CSF: na JCV serology result and date: na (ordered CHIEF COMPLAINT: Follow-up for monitoring off MS modifying therapy INTERVAL HISTORY: Last seen 11/26/17. Has IVMP and steroid taper in November 2017. Reports eye sight is back to normal and right sided numbness has resolved since steroids. Patient has not started any type of control since last visit. Tried to apply for Medicaid for tubal ligation, but income was too much. Does not want to take control pills or try IUD due to hormones. Denies any new or worsening MS symptoms. REVIEW OF SYSTEMS: Mood: Good/bright Spasticity:None Bladder: normal Bowel: Normal Pain related to today's visit:reviewed on nursing intake documentation Fatigue: No change Sleep: Normal Memory/Concentration: Misplacing objects, Trouble multitasking and Losing train of thought PAST HISTORY was reviewed and updated: PAST MEDICAL HISTORY Diagnosis Date - Gestational diabetes mellitus, class A1 04/01/2017 - NEGATIVE MEDICAL HISTORY PAST SURGICAL HISTORY Procedure Laterality Date - TONSILLECTOMY HX MEDICATIONS and ALLERGIES were reviewed and updated. SOCIAL HISTORY was reviewed and updated: Current living situation: At home Current vocational status: Not working by choice EXAM: General Appearance: well appearing, in no acute distress Mental status evaluation during the interview and examination showed normal level of consciousness, orientation, language, memory, praxis, and higher intellectual function Affect: Normal Visual acuity: OD 20/25 OS 20/25 -1 Correction: With glasses Extraocular movements: full, without CASH Facial sensation: Intact bilaterally Facial movements: Intact bilaterally Speech: normal Muscle strength (#/5): Right Left Upper Extremity: Deltoids 5 5 Biceps 5 5 Triceps 5 5 Baker Second 5 5 Dorsal interossei 5 5 Lower extremity: Iliopsoas 5 5 Quadriceps 5 5 Hamstrings 5 5 Tibialis anterior 5 5 Gastrocnemius 5 5 Coordination: Upper extremity dexterity and rapid movements: Normal bilaterally Finger-nose: no dysmetria; coordination intact Standing balance: Normal Standard gait: normal. Assistive device: independent RESULTS: Monitoring labs: Component Latest Ref Rng AND Units 11/26/2017 WBC 3.70 - 11.00 k/uL 10.65 RBC 3.90 - 5.20 m/uL 4.35 Hemoglobin 11.5 - 15.5 g/dL 13.3 Hematocrit 36.0 - 46.0 % 40.1 MCV 80.0 - 100.0 fL 92.2 MCH 26.0 - 34.0 pG 30.6 MCHC 30.5 - 36.0 g/dL 33.2 RDW-CV 11.5 - 15.0 % 12.5 Platelet Count 150 - 400 k/uL 336 MPV 9.0 - 12.7 fL 11.2 Neut% % 59.6 Abs Neut (ANC) 1.45 - 7.50 k/uL 6.35 Lymph% % 30.1 Abs Lymph 1.00 - 4.00 k/uL 3.21 Sarpy% % 7.8 Abs Sarpy <0.87 k/uL 0.83 Eosin% % 1.8 Abs Eosin <0.46 k/uL 0.19 Baso% % 0.7 Abs Baso <0.11 k/uL 0.07 Nucleated Reds 0 /100 WBC 0.0 Absolute nRBC <0.01 k/uL <0.01 Diff Type Auto Diff Protein, Total 6.3 - 8.0 g/dL 7.8 Albumin 3.9 - 4.9 g/dL 4.3 Calcium 8.5 - 10.2 mg/dL 8.9 Bilirubin, Total 0.2 - 1.3 mg/dL 0.2 Alkaline Phosphatase 32 - 117 U/L 59 AST 13 - 35 U/L 18 Glucose 74 - 99 mg/dL 76 BUN 7 - 21 mg/dL 10 Creatinine 0.58 - 0.96 mg/dL 0.65 Sodium 136 - 144 mmol/L 138 Potassium 3.7 - 5.1 mmol/L 3.8 Chloride 97 - 105 mmol/L 99 CO2 22 - 30 mmol/L 25 Anion Gap 9 - 18 mmol/L 14 ALT 7 - 38 U/L 18 eGFR- >60 eGFR-All Other Races . >60 JCV Index Value 0.15 JCV Antibody Negative AIDEN by EIA, Qual Negative Positive (A) AIDEN by EIA OD Ratio 3.0 V.zoster IgG, Qual Negative Positive (A) Varicella zoster, IgG Index Value 1986.0 Anti-SSA <1.0 AI <0.2 Anti-SSB <1.0 AI <0.2 CRP <0.9 mg/dL 0.3 Folate >4.7 ng/mL 18.0 Homocysteine, Serum 3.9 - 14.8 umol/L 8.2 MMA 79 - 376 nmol/L 173 TSH 0.400 - 5.500 uU/mL 1.490 Vitamin B12 232 - 1245 pg/mL 592 NMO Aquaporin 4 IgG <1:10 <1:10 MRI brain: No new brain MRI to review ASSESSMENT: 33 year old female with MS. Currently not on DMT. Discussed DMT options, as patient as highly active MS. Patient is currently not on control and would prefer to avoid hormone control options. Patients best choice of DMT at this time is Ocrevus, due to this. Discussed medication dosage, usage, goals of therapy, and side effects, including increased risk of infection. Patient willing to proceed with Ocrevus. Pre- Ocrevus labs ordered, consent obtained, start from completed. Patient not taking vitamin D. Discussed importance of vitamin D with MS patients. Encouraged patient to start 2000 IU of vitamin D daily. PLAN: 1. Labs today- CBC, CMP, Hep Remote panel, Qunaterferon, HIV 2. Start 2000 IU of vitamin D daily 3. Follow up 3 months after starting Ocrevus Patient Health Education Discussed at Visit: Aerobic exercise, Emotional Health/Wellness and Vitamin D supplementation I spent 45 minutes in this visit, with >50% direct patient time spent counseling about prognosis, treatment options, and coordination of care. The patient was seen with Dr. Leyva. Carly Li APRN.MEDICAL IMAGING TECHNICIAN had IVMP 12/01 for relapse Looked into financial aide. reviewed family planning wishes using condoms, not willing to use certain forms of control. holding on tubal ligation for now. had aggressive MS, needs high efficacy medication. Will start Ocrevus. Seeing Pmp Project Manager locally reviewed C and T spine MRI, no IML reviewed Ocrelizumab, outcomes, AE and SE, she will proceed with pretesting Aracelis Leyva MD CNOV Observed: 02/04/2018 Status: COMPLETED Source: [place] 2:25 PM [facility] REPOSITORY Office Visit ([facility]) ARGENIS TSAI ([id number]) 1985 F Date Time Provider Department 02/04/18 2:25 PM CARLY LI (THAO) [facility] During your visit today, we recorded the following information about you: Pulse Blood pressure Weight Height 69/minute 102/57 82.6 kg 1.575 m Carly Li APRN.CNP 02/04/2018 5:[address] [facility] MULTIPLE SCLEROSIS FOLLOWUP/ESTABLISHED PATIENT VISIT PRINCIPAL NEUROLOGIC DIAGNOSIS: Multiple Sclerosis Date of onset: 11/17/17, ON Date of diagnosis of MS: 11/26/17 Disease course at onset: Relapsing-Remitting Current disease course: Relapsing-Remitting Previous disease therapies: None Current disease therapy: None Most recent MRI brain: 11/19/17 - 7 nestor enhancing lesions including nestor enhancing R ON. Most recent MRI cervical spine: 12/13/17- Tiny disc protrusions at the lower cervical levels without significant canal or foraminal narrowing noted. No evidence of cord signal abnormality or abnormal enhancement. Otherwise, unremarkable MRI cervical spine with and without contrast. CSF: na JCV serology result and date: na (ordered CHIEF COMPLAINT: Follow-up for monitoring off MS modifying therapy INTERVAL HISTORY: Last seen 11/26/17. Has IVMP and steroid taper in November 2017. Reports eye sight is back to normal and right sided numbness has resolved since steroids. Patient has not started any type of control since last visit. Tried to apply for Medicaid for tubal ligation, but income was too much. Does not want to take control pills or try IUD due to hormones. Denies any new or worsening MS symptoms. REVIEW OF SYSTEMS: Mood: Good/bright Spasticity:None Bladder: normal Bowel: Normal Pain related to today's visit:reviewed on nursing intake documentation Fatigue: No change Sleep: Normal Memory/Concentration: Misplacing objects, Trouble multitasking and Losing train of thought PAST HISTORY was reviewed and updated: PAST MEDICAL HISTORY Diagnosis Date - Gestational diabetes mellitus, class A1 04/01/2017 - NEGATIVE MEDICAL HISTORY PAST SURGICAL HISTORY Procedure Laterality Date - TONSILLECTOMY HX MEDICATIONS and ALLERGIES were reviewed and updated. SOCIAL HISTORY was reviewed and updated: Current living situation: At home Current vocational status: Not working by choice EXAM: General Appearance: well appearing, in no acute distress Mental status evaluation during the interview and examination showed normal level of consciousness, orientation, language, memory, praxis, and higher intellectual function Affect: Normal Visual acuity: OD 20/25 OS 20/25 -1 Correction: With glasses Extraocular movements: full, without CASH Facial sensation: Intact bilaterally Facial movements: Intact bilaterally Speech: normal Muscle strength (#/5): Right Left Upper Extremity: Deltoids 5 5 Biceps 5 5 Triceps 5 5 Baker Second 5 5 Dorsal interossei 5 5 Lower extremity: Iliopsoas 5 5 Quadriceps 5 5 Hamstrings 5 5 Tibialis anterior 5 5 Gastrocnemius 5 5 Coordination: Upper extremity dexterity and rapid movements: Normal bilaterally Finger-nose: no dysmetria; coordination intact Standing balance: Normal Standard gait: normal. Assistive device: independent RESULTS: Monitoring labs: Component Latest Ref Rng ANDamp; Units 11/26/2017 WBC 3.70 - 11.00 k/uL 10.65 RBC 3.90 - 5.20 m/uL 4.35 Hemoglobin 11.5 - 15.5 g/dL 13.3 Hematocrit 36.0 - 46.0 % 40.1 MCV 80.0 - 100.0 fL 92.2 MCH 26.0 - 34.0 pG 30.6 MCHC 30.5 - 36.0 g/dL 33.2 RDW-CV 11.5 - 15.0 % 12.5 Platelet Count 150 - 400 k/uL 336 MPV 9.0 - 12.7 fL 11.2 Neut% % 59.6 Abs Neut (ANC) 1.45 - 7.50 k/uL 6.35 Lymph% % 30.1 Abs Lymph 1.00 - 4.00 k/uL 3.21 Sarpy% % 7.8 Abs Sarpy ANDlt;0.87 k/uL 0.83 Eosin% % 1.8 Abs Eosin ANDlt;0.46 k/uL 0.19 Baso% % 0.7 Abs Baso ANDlt;0.11 k/uL 0.07 Nucleated Reds 0 /100 WBC 0.0 Absolute nRBC ANDlt;0.01 k/uL ANDlt;0.01 Diff Type Auto Diff Protein, Total 6.3 - 8.0 g/dL 7.8 Albumin 3.9 - 4.9 g/dL 4.3 Calcium 8.5 - 10.2 mg/dL 8.9 Bilirubin, Total 0.2 - 1.3 mg/dL 0.2 Alkaline Phosphatase 32 - 117 U/L 59 AST 13 - 35 U/L 18 Glucose 74 - 99 mg/dL 76 BUN 7 - 21 mg/dL 10 Creatinine 0.58 - 0.96 mg/dL 0.65 Sodium 136 - 144 mmol/L 138 Potassium 3.7 - 5.1 mmol/L 3.8 Chloride 97 - 105 mmol/L 99 CO2 22 - 30 mmol/L 25 Anion Gap 9 - 18 mmol/L 14 ALT 7 - 38 U/L 18 eGFR- ANDgt;60 eGFR-All Other Races . ANDgt;60 JCV Index Value 0.15 JCV Antibody Negative AIDEN by EIA, Qual Negative Positive (A) AIDEN by EIA OD Ratio 3.0 V.zoster IgG, Qual Negative Positive (A) Varicella zoster, IgG Index Value 1986.0 Anti-SSA ANDlt;1.0 AI ANDlt;0.2 Anti-SSB ANDlt;1.0 AI ANDlt;0.2 CRP ANDlt;0.9 mg/dL 0.3 Folate ANDgt;4.7 ng/mL 18.0 Homocysteine, Serum 3.9 - 14.8 umol/L 8.2 MMA 79 - 376 nmol/L 173 TSH 0.400 - 5.500 uU/mL 1.490 Vitamin B12 232 - 1245 pg/mL 592 NMO Aquaporin 4 IgG ANDlt;1:10 ANDlt;1:10 MRI brain: No new brain MRI to review ASSESSMENT: 33 year old female with MS. Currently not on DMT. Discussed DMT options, as patient as highly active MS. Patient is currently not on control and would prefer to avoid hormone control options. Patients best choice of DMT at this time is Ocrevus, due to this. Discussed medication dosage, usage, goals of therapy, and side effects, including increased risk of infection. Patient willing to proceed with Ocrevus. Pre- Ocrevus labs ordered, consent obtained, start from completed. Patient not taking vitamin D. Discussed importance of vitamin D with MS patients. Encouraged patient to start 2000 IU of vitamin D daily. PLAN: 1. Labs today- CBC, CMP, Hep Remote panel, Qunaterferon, HIV 2. Start 2000 IU of vitamin D daily 3. Follow up 3 months after starting Ocrevus Patient Health Education Discussed at Visit: Aerobic exercise, Emotional Health/Wellness and Vitamin D supplementation I spent 45 minutes in this visit, with ANDgt;50% direct patient time spent counseling about prognosis, treatment options, and coordination of care. The patient was seen with Dr. Leyva. Carly Li APRN.MEDICAL IMAGING TECHNICIAN had IVMP 12/01 for relapse Looked into financial aide. reviewed family planning wishes using condoms, not willing to use certain forms of control. holding on tubal ligation for now. had aggressive MS, needs high efficacy medication. Will start Ocrevus. Seeing Pmp Project Manager locally reviewed C and T spine MRI, no IML reviewed Ocrelizumab, outcomes, AE and SE, she will proceed with pretesting MD Carly Gtz APRN.[facility] 02/04/2018 4:39 PM Signed -Follow up 3 months after starting Ocrevus -Labs @ [facility] Referring Provider: SELF [[id number]] Allergies As of Date: 02/04/2018 Noted Allergy Reaction MACRODANTIN (NITROFURANTOIN MACRO*04/12/2014 4 - Hives 12 - Shortness of Breath Comments: TACHYCARDIA SULFA (SULFONAMIDE ANTIBIOTICS) 04/12/2014 4 - Hives Date Reviewed: 02/04/2018 Reviewed by: Carly ([facility]) Guillermo - Fully Assessed Reason for Visit: Follow Up [171] Primary Visit Diagnosis:Multiple sclerosis (HCC) [G35] Order(s):CBC + DIFF [SQCBCDIF] Order #: [id number] FUTURE COMP METABOLIC PANEL [SQCMP] Order #: [id number] FUTURE HIV 1,2 COMBO (AG/AB) [SQHIV12] Order #: [id number] FUTURE HEP REMOTE PANEL BL [SQHREMOP] Order #: [id number] FUTURE BLOOD TB SCREEN [SQINFTBG] Order #: [id number] FUTURE Prescriptions as of 02/04/2018 Sig: OMEGA 3 ORAL Take by mouth. Omeg* VITAMIN,CALCIUM,MINE* Take 1 tablet by mouth. COMPOUNDED PRESCRIPTION Massage Therapy for Sciatic P* Medication notes this encounter PREDNISONE 20 MG TABLET >> Nataly Hartley MA 02/04/2018 2:19 PM >> NATALY HARTLEY MA Feb 04, 2018 2:19 PM Needs to be discontinued TINA Problem List As Of Date 02/04/2018 Noted Resolved Family history of congenital heart defect [Z82.*INVALID FOR*07/25/2017 More... Family history of cystic fibrosis [Z83.49] INVALID FOR*07/25/2017 More... Vaginal discharge in [O26.899, N89.8] INVALID FOR*04/28/2014 More... More... More... History of oligohydramnios in prior , *INVALID FOR*07/25/2017 Encounter for supervision of normal i*INVALID FOR*07/25/2017 Abnormal glucose affecting [O99.810] INVALID FOR*07/25/2017 More... Gestational diabetes mellitus, class A1 [O24.41*INVALID FOR*07/25/2017 Multiple sclerosis (HCC) [G35] INVALID FOR* Other instructions from your clinician: -Follow up 3 months after starting Ocrevus -Labs @ [facility] Medications Discontinued During This Encounter predniSONE (DELTASONE) 20 mg tablet 24 t* 0 11/26/2017 02/04/2018 Si TABS DAILY FOR 4 DAYS, THEN 2 TABS DAILY FOR 4 DAYS, THEN 1 TAB DAILY FOR 4 DAYS Disc: Reason for discontinue is not on file. Blood-Glucose Meter misc 1 Ea* 0 04/01/2017 02/04/2018 Cmt: Per Insurance Coverage Route: OTHER Si Each as directed. Disc: Reason for discontinue is not on file. blood sugar diagnostic test strip 120 * 9 04/01/2017 02/04/2018 Cmt: Per Insurance Coverage Route: OTHER Si Strip four times daily. Use as instructed Disc: Reason for discontinue is not on file. clotrimazole-betamethasone (LOTRISON* 15 g 0 01/05/2016 02/04/2018 Route: TOPICAL Sig: Apply 1 application to affected area twice daily. Disc: Reason for discontinue is not on file. Lancets lancets 120 * 9 04/01/2017 02/04/2018 Cmt: Per insurance coverage Route: OTHER Si Each four times daily. Use as instructed Disc: Reason for discontinue is not on file. Urine Glucose-Ketones Test (KETO-MEJIA* 120 * 9 04/01/2017 02/04/2018 Cmt: Per insurance coverage Route: OTHER Si Strip four times daily. Disc: Reason for discontinue is not on file. Encounter Status:Closed by CARLY LI on 02/04/18 PROGRESS Observed: 12/27/2017 Status: COMPLETED Source: [place] 12:48 PM [facility] REPOSITORY HNO ID: [id number] Author: Marimar Yuen (Sw) Service: (none) Author Type: Laundry Washer Type: Progress Notes Filed: 12/30/2017 1:30 PM Note Text: Patient and Sw called [place] Medicaid # [phone] for patient to be screened for Medicaid insurance. Patient's children would qualify but she would not. Patient declined Medicaid coverage then at this time. Patient requesting assistance with medication. Sw looked up patient unique and found different copay programs. Sw read mychart note to [facility] and patient will discuss with them different patient assistance programs for gilenya medication. Patient will let Sw know if she needs any further assistance. CNSW Observed: 12/26/2017 Status: COMPLETED Source: [place] 12:00 AM [facility] REPOSITORY Social Work (BRENT) ARGENIS TSAI ([id number]) 1985 F Date Time Provider Department 12/26/17 MARIMAR YUEN) BRENT During your visit today, we recorded the following information about you: JOSUE Jonas 12/30/2017 1:30 PM Signed Patient and Sw called [place] Medicaid # [phone] for patient to be screened for Medicaid insurance. Patient's children would qualify but she would not. Patient declined Medicaid coverage then at this time. Patient requesting assistance with medication. Sw looked up patient unique and found different copay programs. Sw read mychart note to [facility] and patient will discuss with them different patient assistance programs for unique medication. Patient will let Sw know if she needs any further assistance. Allergies As of Date: 12/26/2017 Noted Allergy Reaction MACRODANTIN (NITROFURANTOIN MACRO*04/12/2014 4 - Hives 12 - Shortness of Breath Comments: TACHYCARDIA SULFA (SULFONAMIDE ANTIBIOTICS) 04/12/2014 4 - Hives Date Reviewed: 11/28/2017 Reviewed by: Ria (Rn) EMELI Fletcher - Fully Assessed Prescriptions as of 12/26/2017 Sig: PREDNISONE 20 MG TABLET 3 TABS DAILY FOR 4 DAYS, THEN* COMPOUNDED PRESCRIPTION Massage Therapy for Sciatic P* BLOOD-GLUCOSE METER 1 Each as directed. BLOOD SUGAR DIAGNOSTIC STRIPS 1 Strip four times daily. Use* LANCETS 1 Each four times daily. Use * URINE GLUCOSE-KETONES TEST ST* 1 Strip four times daily. CLOTRIMAZOLE-BETAMETHASONE 1 * Apply 1 application to affect* OMEGA 3 ORAL Take by mouth. Omeg* VITAMIN,CALCIUM,MINE* Take 1 tablet by mouth. Problem List As Of Date 12/26/2017 Noted Resolved Family history of congenital heart defect [Z82.*INVALID FOR*07/25/2017 More... Family history of cystic fibrosis [Z83.49] INVALID FOR*07/25/2017 More... Vaginal discharge in [O26.899, N89.8] INVALID FOR*04/28/2014 More... More... More... History of oligohydramnios in prior , *INVALID FOR*07/25/2017 Encounter for supervision of normal i*INVALID FOR*07/25/2017 Abnormal glucose affecting [O99.810] INVALID FOR*07/25/2017 More... Gestational diabetes mellitus, class A1 [O24.41*INVALID FOR*07/25/2017 Multiple sclerosis (HCC) [G35] INVALID FOR* Encounter Status:Closed by MARIMAR GLORIA on 12/30/17 PROGRESS Observed: 12/13/2017 Status: COMPLETED Source: [place] 3:10 PM [facility] REPOSITORY HNO ID: [id number] Author: Marlys Domingo Rt Service: (none) Author Type: (none) Type: Progress Notes Filed: 12/13/2017 3:11 PM Note Text: Radiology Service Progress Note PATIENT NAME: Argenis Tsai DATE OF SERVICE: December 13, 2017 TIME: 3:10 PM PATIENT IDENTITY VERIFICATION COMPLETED USING TWO (2) METHODS: Patient confirmed name verbally and Date of . PATIENT GENDER DATA: Female. status: : No status: NO. PATIENT RELEVANT IMPLANT DATA REVIEWED: Yes CONTRAST INDUCED NEPHROPATHY RISK FACTORS: Not applicable CREATININE: Creatinine Date Value Ref Range Status 11/26/2017 0.65 0.58 - 0.96 mg/dL Final eGFR-All Other Races Date Value Ref Range Status 11/26/2017 >60 . Final Comment: eGFR (Estimated GFR) Units of measure: mL/min/1.73 meters squared eGFR is derived from the reexpressed MDRD Study equation using the following parameters: serum creatinine, age, gender and race. The creatinine assay has been calibrated to be traceable to IDMS. An eGFR <60 mL/min/1.73m2 for >3 months is consistent with chronic kidney disease. Refer to KDOQI guidelines for clinical interpretation. In patients with unstable renal function, e.g. those with acute kidney injury, the eGFR may not accurately reflect actual GFR. eGFR- Date Value Ref Range Status 11/26/2017 >60 Final P.O.C.T. RESULTS: N/A December 13, 2017 RADIOLOGIST NOTIFIED?: No ALLERGIES: Reviewed and unchanged CONTRAST ALLERGY: NO. PERIPHERAL IV ACCESS: Ambulatory: IV type: A peripheral IV was started in the Right antecubital site with a Angio cath/Butterfly: 22 gauge., Site assessment: Clean,Dry and Intact, Site disposition Discontinued RADIOLOGY DEPARTMENT: MR; Exam(s) Completed: Spine: Cervical spine and Thoracic spine SIGNED BY: Marlys Domingo Rt December 13, 2017 3:10 PM MRI THORACIC SPINE Observed: 12/13/2017 Status: F Source: [facility] IVCON 3:08 PM [facility] REPOSITORY * * *Final Report* * * DATE OF EXAM: Dec 13 2017 3:08PM [facility] 0326 - MRI THORACIC SPINE WO/W IVCON / PROCEDURE REASON: multiple diagnoses * * * * Physician Interpretation * * * * EXAMINATION: MRI THORACIC SPINE WO/W IVCON HISTORY: Demyelinating disease of central nervous system, unspecified Multiple sclerosis TECHNIQUE: Routine thoracic spine MR protocol. Contrast dose: 16 cc Dotarem administered intravenously. MQ: [id number] COMPARISON: None. RESULT: Counting reference: Lumbosacral junction. For the purposes of this report, L4-5 is considered the level of the iliac crest. Alignment: Alignment is anatomic. Cord: The visualized cord is within normal limits of signal intensity and morphology. Bone marrow signal/fracture: No evidence of pathologic marrow infiltration. No evidence of prior fracture. Thoracic paraspinal soft tissues: The paraspinal soft tissues are within normal limits. Canal and foramina: The thoracic canal and foramina are patent. No abnormal enhancement. IMPRESSION: Unremarkable MRI thoracic spine with and without contrast. Account Manager Trainee: P[facility] Transcribe Date/Time: Dec 13 2017 3:35P Dictated by : SHANNON JOHNSON MD This examination was interpreted and the report reviewed and electronically signed by: SHANNON JOHNSON MD on Dec 13 2017 3:36PM EST [id number] MRI CERVICAL SPINE Observed: 12/13/2017 Status: F Source: [place] [facility] IVCON 3:08 PM [facility] REPOSITORY * * *Final Report* * * DATE OF EXAM: Dec 13 2017 3:08PM [facility] 0298 - MRI CERVICAL SPINE WO/W IVCON / PROCEDURE REASON: multiple diagnoses * * * * Physician Interpretation * * * * EXAMINATION: MRI CERVICAL SPINE WO/W IVCON HISTORY: Demyelinating disease of central nervous system, unspecified Multiple sclerosis TECHNIQUE: Routine cervical spine MR protocol with and without gadolinium. Contrast dose: 16 cc Dotarem administered intravenously. MQ: [id number] COMPARISON: None. RESULT: Counting reference: Craniocervical junction. Alignment: There is straightening of the cervical spine, likely positional. No significant anterolisthesis or retrolisthesis is seen. Craniocervical junction: Craniocervical junction is normal. Cord: The visualized cord is within normal limits of signal intensity and morphology. Bone marrow signal/fracture: No evidence of pathologic marrow infiltration. No evidence of prior fracture. Cervical soft tissues: The paraspinal soft tissues are within normal limits. Tiny disc protrusion seen at the lower cervical levels without significant canal or foraminal narrowing. C2-C3: Canal and foramina are patent. C3-C4: Canal and foramina are patent. C4-C5: Canal and foramina are patent. C5-C6: Canal and foramina are patent. C6-C7: Canal and foramina are patent. C7-T1: Canal and foramina are patent. No abnormal enhancement. IMPRESSION: Tiny disc protrusions at the lower cervical levels without significant canal or foraminal narrowing noted. No evidence of cord signal abnormality or abnormal enhancement. Otherwise, unremarkable MRI cervical spine with and without contrast. Account Manager Trainee[facility] Transcribe Date/Time: Dec 13 2017 3:36P Dictated by : SHANNON JOHNSON MD This examination was interpreted and the report reviewed and electronically signed by: SHANNON JOHNSON MD on Dec 13 2017 3:38PM EST [id number] PROGRESS Observed: 12/04/2017 Status: COMPLETED Source: [place] 10:02 AM [facility] REPOSITORY HNO ID: [id number] Author: Aracelis Beltran Vincenttracey Service: (none) Author Type: Physician Type: Progress Notes Filed: 12/04/2017 10:02 AM Note Text: I have received the results of your recent tests. The RAULITO virus was not detected in your blood in the recent blood drawn. Having the RAULITO virus is a common finding in adults, it is estimated that the majority of the adult population have this virus in their system. This may mean that you have a lower chance of getting the PML. The PML is that brain disorder that is caused by the RAULITO virus. We can discuss this further at your next visit. Please continue with your medications. In honor of National Nutrition Month?, we challenge you to think about ways you can make healthier food and beverage choices easier for yourself and others. Try making small shifts like switching from white bread to whole wheat bread - or choosing seltzer water instead of soda with added sugar. For more ideas on how to make small shifts, check out the 7920-8732 Dietary Guidelines for Americans. https://health.gov/dietaryguidelines/2015/guidelines/chapter-1/cuenca-recommen dations/ Ines we are starting a new Shared Medical visit for the MS patient. What- it is a monthly Shared medical visit, this is a medical visit that is in a classroom with other MS patients, typically 10 or so It is a medical visit in that the MS symptoms, medications and results can be addressed like a regular MS visit. It will add in more time for Wellness topics education and experience like Yog and cooking demonstration . There will be 4 Wellness topics: The four cuenca lifestyle topics covered at particular visit on a rolling basis will be: 1.Nutrition - 2.Cooking demonstration and lecture- 3.Yoga - 4.Stress Management/Behavioral Health - When: Saturday of the Month 1:30-3 pm Where: [facility] ,( free parking in a garage) Address: [facility] [address], [place] [address] How: Please call [phone] to schedule Cost- Medical copay, there is an extra cost for the cooking demonstration day as you will have food to taste. We hope you can join us for one or all of the 4 topics! The participants need to be MS patients. PROGRESS Observed: 11/29/2017 Status: COMPLETED Source: [place] 9:02 AM [facility] REPOSITORY HNO ID: [id number] Author: Marimar Yuen (Sw) Service: (none) Author Type: Laundry Washer Type: Progress Notes Filed: 11/29/2017 9:05 AM Note Text: Patient called Shanell with son's SS number to place on Medicaid application. [facility] PROGRESS Observed: 11/27/2017 Status: COMPLETED Source: [place] 4:11 PM [facility] REPOSITORY HNO ID: [id number] Author: Marimar Yuen (Sw) Service: (none) Author Type: Laundry Washer Type: Progress Notes Filed: 11/29/2017 9:05 AM Note Text: Patient and Sw reviewed Medicaid application and completed application. Patient needs youngest son social security number to put on application. Patient will call Shanell with number to place on application. Sw will then fax application to [facility] [phone] once complete. PATTI Observed: 11/27/2017 Status: COMPLETED Source: [place] 12:00 AM [facility] REPOSITORY Telephone (NEMJOHNNIEN) ARGENIS TSAI ([id number]) 1985 F Date Time Provider Department 11/27/17 ARACELIS LEYVA During your visit today, we recorded the following information about you: Aracelis Kirk Medse 11/27/2017 8:16 AM Signed Patient can get her solu medrol at [facility] room. [facility] can not get her in till december 14. But she spoke to [facility] who can get her in next week. P: [phone] F: [phone] Please fax orders and last office note to this hospital. Aracelis Kirk [facility] 11/27/2017 10:38 AM Signed Patient can get in today at [facility]. 1:00pm Can we get orders to fax TINA? Aracelis Leyva MD 11/27/2017 11:37 AM Signed Solumedrol orders are in [facility], can they see this? I am at [facility], I will have this office fax the [facility] orders thanks Aracelis Leyva MD 11/27/2017 11:38 AM Signed Here is her assessement from yesterday ASSESSMENT: 32 year old female 5 months post with acute onset of relapsing neurologic symptoms. The neurologic examination is significant for poor acuity OD and hypesthesia R LE. The Brain MRI is consistent with active MS with 7 nestor enhancing lesions including nestor enhancing R ON. The spinal cord and CSF have not been assessed. She has definite relapsing remitting MS. She has family history of autoimmune conditions. The MS is currently clinically active and radiographically active. She has symptoms referrable to the spinal cord- numbness of the R leg, she will need cervical and thoracic spine MRI The differential diagnosis of MS includes: ADEM, Lyme disease, Vasculitis, Rheumatological disorders, degenerative diseases, vascular insufficiencies and or neoplasia. We have discussed the fact that there is room for error in the diagnosis of MS, I have explained to the patient how their symptoms and test results relate to the diagnosis of MS. The Atypical features of MS include: none The diagnosis is: definite Multiple Sclerosis. The testing that will need to be done includes: screening labs, MRI of C and T spine due to symptoms and examination We have discussed the therapeutic options including some of these listed: Avonex, Betaseron, Copaxone, Tecfidera, Aubagio, Gilenya, Tysabri, Lemtrada and Rebif. I have recommended we screen her labs and determine her best option, we have initially reviewed Unique due to the fact she has 7 nestor enhancing lesions, will also check for RAULITO index to see if Tysabri can be used . We will discuss this further at her next visit. She will need IV steroids for her ON and her 7 nestor enhancing brain lesions. IV Solumedrol 1,000 mg x 3days then 12 day Prednisone taper Prednisone 20 mg , #25, 60 mg qd x4 , 40 mg qd x4 then 20 mg qd x4 then stop Pepcid 20 mg po bid, #30 rfx0 while on the steroids She prefers visits at [facility], will treat today at [facility] then through home care or [facility], orders in [place]. No driving until visual acuity and cano are improved. The symptoms of MS that need to be addressed include: poor vision OD: We have reviewed a healthy diet for MS would include a Mediterranean diet. I have recommended exercise 3-5 x a week for 30 minutes as tolerated. I have recommended that they see their primary doctor for prevention of and management of co-morbidities. We have discussed family planning and MS. MS patients have a higher risk for Osteoporosis and this is the reason that they should begin taking 1500 mg a day of Calcium with 600mg a day Vitamin D. Reviewed VItamin D3 in MS, goal blood level is 70 to optimize MS therapy I have reviewed the plan with the patient and educated them on the details, they find the plan acceptable and understandable, there are no barriers and they have no further barriers that would prevent them from moving forward with our above plan. Time Spent with Patient: During this patient visit I have spent approximately 30 minutes out of 60 in counselling regarding exercise, treatment options and test results and coordinating care. The patient will have the testing performed at . I will see the patient after testing is complete and review the results. MD Carly Arora, THAO 11/27/2017 11:40 AM Signed I just faxed the note and [facility] orders over. Caesar Riley, RN, RN 11/27/2017 11:55 AM Signed Placed call to patient, patient identified by name and date of . Patient reports she is now able to get into the [facility] location. I placed a call to [facility], they can see the orders in [place] and have her on her schedule for 2 PM today. I confirmed this with the patient, also reminded her to start Pepcid today and initiate the prednisone taper the day after her last Solu- Medrol infusion. Patient verbalized understanding. Allergies As of Date: 11/27/2017 Noted Allergy Reaction MACRODANTIN (NITROFURANTOIN MACRO*04/12/2014 4 - Hives 12 - Shortness of Breath Comments: TACHYCARDIA SULFA (SULFONAMIDE ANTIBIOTICS) 04/12/2014 4 - Hives Date Reviewed: 11/26/2017 Reviewed by: Nataly Hartley - Fully Assessed Reason for Visit: Orders [681] Prescriptions as of 11/27/2017 Sig: IV CONTRAST (RADIOLOGY PROCED* MRI TSP Inject, intravenousl* IV CONTRAST (RADIOLOGY PROCED* MRI CSP Inject, intravenousl* PREDNISONE 20 MG TABLET 3 TABS DAILY FOR 4 DAYS, THEN* FAMOTIDINE 20 MG TABLET Take 1 tablet by mouth twice * COMPOUNDED PRESCRIPTION Massage Therapy for Sciatic P* BLOOD-GLUCOSE METER 1 Each as directed. BLOOD SUGAR DIAGNOSTIC STRIPS 1 Strip four times daily. Use* LANCETS 1 Each four times daily. Use * URINE GLUCOSE-KETONES TEST ST* 1 Strip four times daily. CLOTRIMAZOLE-BETAMETHASONE 1 * Apply 1 application to affect* OMEGA 3 ORAL Take by mouth. Omeg* VITAMIN,CALCIUM,MINE* Take 1 tablet by mouth. Problem List As Of Date 11/27/2017 Noted Resolved Family history of congenital heart defect [Z82.*INVALID FOR*07/25/2017 More... Family history of cystic fibrosis [Z83.49] INVALID FOR*07/25/2017 More... Vaginal discharge in [O26.899, N89.8] INVALID FOR*04/28/2014 More... More... More... History of oligohydramnios in prior , *INVALID FOR*07/25/2017 Encounter for supervision of normal i*INVALID FOR*07/25/2017 Abnormal glucose affecting [O99.810] INVALID FOR*07/25/2017 More... Gestational diabetes mellitus, class A1 [O24.41*INVALID FOR*07/25/2017 Multiple sclerosis (HCC) [G35] INVALID FOR* Encounter Status:Closed by ARACELIS LEYVA MD on 11/27/17 JERARDO Observed: 11/27/2017 Status: COMPLETED Source: [place] 12:00 AM [facility] REPOSITORY Social Work (BRENT) ARGENIS TSAI ([id number]) 1985 F Date Time Provider Department 11/27/17 MARIMAR YUEN (SW) During your visit today, we recorded the following information about you: JOSUE Jonas 11/29/2017 9:05 AM Signed Patient and Shanell reviewed Medicaid application and completed application. Patient needs youngest son social security number to put on application. Patient will call with number to place on application. Shanell will then fax application to [facility] [phone] once complete. JOSUE Jonas 11/29/2017 9:05 AM Signed Patient called with son's SS number to place on Medicaid application. Shanell faxed Medicaid application to [facility]. Allergies As of Date: 11/27/2017 Noted Allergy Reaction MACRODANTIN (NITROFURANTOIN MACRO*04/12/2014 4 - Hives 12 - Shortness of Breath Comments: TACHYCARDIA SULFA (SULFONAMIDE ANTIBIOTICS) 04/12/2014 4 - Hives Date Reviewed: 11/27/2017 Reviewed by: Yoana Mirza, RN, RN - Fully Assessed Prescriptions as of 11/27/2017 Sig: IV CONTRAST (RADIOLOGY PROCED* MRI TSP Inject, intravenousl* IV CONTRAST (RADIOLOGY PROCED* MRI CSP Inject, intravenousl* PREDNISONE 20 MG TABLET 3 TABS DAILY FOR 4 DAYS, THEN* FAMOTIDINE 20 MG TABLET Take 1 tablet by mouth twice * COMPOUNDED PRESCRIPTION Massage Therapy for Sciatic P* BLOOD-GLUCOSE METER 1 Each as directed. BLOOD SUGAR DIAGNOSTIC STRIPS 1 Strip four times daily. Use* LANCETS 1 Each four times daily. Use * URINE GLUCOSE-KETONES TEST ST* 1 Strip four times daily. CLOTRIMAZOLE-BETAMETHASONE 1 * Apply 1 application to affect* OMEGA 3 ORAL Take by mouth. Omeg* VITAMIN,CALCIUM,MINE* Take 1 tablet by mouth. Problem List As Of Date 11/27/2017 Noted Resolved Family history of congenital heart defect [Z82.*INVALID FOR*07/25/2017 More... Family history of cystic fibrosis [Z83.49] INVALID FOR*07/25/2017 More... Vaginal discharge in [O26.899, N89.8] INVALID FOR*04/28/2014 More... More... More... History of oligohydramnios in prior , *INVALID FOR*07/25/2017 Encounter for supervision of normal i*INVALID FOR*07/25/2017 Abnormal glucose affecting [O99.810] INVALID FOR*07/25/2017 More... Gestational diabetes mellitus, class A1 [O24.41*INVALID FOR*07/25/2017 Multiple sclerosis (HCC) [G35] INVALID FOR* Encounter Status:Closed by MARIMAR GLORIA on 11/29/17 CBC AND DIFFERENTIAL Collected: 11/26/2017 Status: F Source: [place] 4:42 PM [facility] REPOSITORY TYPE CODE TESTS RESULT OUT OF REFERENCE UNITS RANGE LAB WBC 3.70-11.00 k/uL WBC 10.65 LAB RBC 3.90-5.20 m/uL RBC 4.35 LAB HGB 11.5-15.5 g/dL Hemoglobin 13.3 LAB HCT 36.0-46.0 % Hematocrit 40.1 LAB MCV 80.0-100.0 fL MCV 92.2 LAB MCH 26.0-34.0 pG MCH 30.6 LAB MCHC 30.5-36.0 g/dL MCHC 33.2 LAB RDWCV 11.5-15.0 % RDW-CV 12.5 LAB PLTCT 150-400 k/uL Platelet Count 336 LAB MPV 9.0-12.7 fL MPV 11.2 LAB ANEUT % Neut% 59.6 LAB AANEUT 1.45-7.50 k/uL Abs Neut 6.35 LAB ALYMP % Lymph% 30.1 LAB AALYMP 1.00-4.00 k/uL Abs Lymph 3.21 LAB AMONO % Sarpy% 7.8 LAB AAMONO <0.87 k/uL Abs Sarpy 0.83 LAB AEOS % Eosin% 1.8 LAB AAEOS <0.46 k/uL Abs Eosin 0.19 LAB ABASO % Baso% 0.7 LAB AABASO <0.11 k/uL Abs Baso 0.07 LAB AUNRBC 0 /100 WBC NRBCs 0.0 LAB ABNRBC <0.01 k/uL Absolute nRBC <0.01 LAB DTYP DTYPE Auto Diff Performed By: #### CBCDIF, HOMCYS, CMP, CRP, TSH, B12, SERFOL, ANTSSA, SSB, ANAS, VZVG2, MMA #### [place] [id number] #### NMOIFA #### [facility] [address] [place] [address] [phone] HOMOCYSTEINE, SERUM Collected: 11/26/2017 Status: F Source: [place] 4:42 PM [facility] REPOSITORY TYPE CODE TESTS RESULT OUT OF REFERENCE UNITS RANGE LAB HOMCYS 3.9-14.8 umol/L 8.2 Homocysteine , Serum Performed By: #### CBCDIF, HOMCYS, CMP, CRP, TSH, B12, SERFOL, ANTSSA, SSB, ANAS, VZVG2, MMA #### [place] [address] [place] [id number] #### NMOIFA #### [facility] [address] [place] [address] [phone] COMP METABOLIC PANEL Collected: 11/26/2017 Status: F Source: [place] 4:42 PM [facility] REPOSITORY TYPE CODE TESTS RESULT OUT OF REFERENCE UNITS RANGE LAB TP 6.3-8.0 g/dL Protein, Total 7.8 LAB ALB 3.9-4.9 g/dL Albumin 4.3 LAB CA 8.5-10.2 mg/dL Calcium, Total 8.9 LAB TBIL 0.2-1.3 mg/dL Bilirubin, Total 0.2 LAB ALKP 32-117 U/L Alkaline Phosphatase 59 LAB AST 13-35 U/L AST 18 LAB GLU 74-99 mg/dL Glucose 76 Result Comment: The [place] Diabetes Association (ADA) provides guidance for cutoff values for fasting glucose and random glucose. The ADA defines fasting as no caloric intake for at least 8 hours. Fas ting plasma glucose results between 100 to 125 mg/dL indicate increased risk for diabetes (prediabetes). Fasting plasma glucose results greater than or equal to 126 mg/dL meet the criteria for diagnosis of diabetes. In the absence of unequivocal hyperglycemia, results should be confirmed by repeat testing. In a patient with classic symptoms of hyperglycemia or hyperglycemic crisis, random plasma glucose results greater than or equal to 200 mg/dL meet the criteria for diagnosis of diabetes. Reference: Standards of Medical Care in Diabetes 2016, [place] Diabetes Association. Diabetes Care. 2016.39(Suppl 1). LAB BUN 7-21 mg/dL BUN 10 LAB CRET 0.58-0.96 mg/dL Creatinine 0.65 LAB NA 136-144 mmol/L Sodium 138 LAB K 3.7-5.1 mmol/L Potassium 3.8 LAB CL 97-105 mmol/L Chloride 99 LAB CO2 22-30 mmol/L CO2 25 LAB AGAP 9-18 mmol/L Anion Gap 14 LAB ALT 7-38 U/L ALT 18 LAB GFRAA eGFR- Amer. >60 LAB GFRNAA . eGFR-All Other Races >60 Result Comment: eGFR (Estimated GFR) Units of measure: mL/min/1.73 meters squared eGFR is derived from the reexpressed MDRD Study equation using the following parameters: serum creatinine, age, gender and race. The creatinine assay has been calibrated to be traceable to IDMS. An eGFR <60 mL/min/1.73m2 for >3 months is consistent with chronic kidney disease. Refer to KDOQI guidelines for clinical interpretation. In patients with unstable renal function, e.g. those with acute kidney injury, the eGFR may not accurately reflect actual GFR. Performed By: #### CBCDIF, HOMCYS, CMP, CRP, TSH, B12, SERFOL, ANTSSA, SSB, ANAS, VZVG2, MMA #### [facility] [address] [place] [address] #### NMOIFA #### [facility] [address] [place] [address] [phone] C-REACTIVE PROTEIN Collected: 11/26/2017 Status: F Source: [place] 4:42 PM [facility] REPOSITORY TYPE CODE TESTS RESULT OUT OF REFERENCE UNITS RANGE LAB CRP <0.9 mg/dL C-Reactive 0.3 Protein Performed By: #### CBCDIF, HOMCYS, CMP, CRP, TSH, B12, SERFOL, ANTSSA, SSB, ANAS, VZVG2, MMA #### [place] [address] [place] [address] #### NMOIFA #### [facility] [address] [place] [address] [phone] TSH Collected: 11/26/2017 Status: F Source: [place] 4:42 PM [facility] REPOSITORY TYPE CODE TESTS RESULT OUT OF RANGE REFERENCE UNITS LAB TSH 0.400-5.500 uU/mL TSH 1.490 Result Comment: If the patient is , TSH reference range varies by gestational period: First Trimester 0.100-2.500 uU/mL Second Trimester 0.200-3.000 uU/mL Third Trimester 0.300-3.000 uU/mL References: 1. De Alxea L, Bebe M, Awais EK, et al. Management of Thyroid Dysfunction during and : An Endocrine Society Clinical Practice Guideline. J Clin Endocrinol Metab, 2012:97:1075-7775. 2. Koko HARO. Overview of thyroid disease in . UpToDate. 2016. Accessed on March 30, 2016. Performed By: #### CBCDIF, HOMCYS, CMP, CRP, TSH, B12, SERFOL, ANTSSA, SSB, ANAS, VZVG2, MMA #### [place] [address] [place] [address] #### NMOIFA #### [facility] [address] [place] [address] [phone] VITAMIN B12 Collected: 11/26/2017 Status: F Source: [place] 4:42 [facility] REPOSITORY TYPE CODE TESTS RESULT OUT OF REFERENCE UNITS RANGE LAB B12 232-1245 pg/mL Vitamin B12 592 Performed By: #### CBCDIF, HOMCYS, CMP, CRP, TSH, B12, SERFOL, ANTSSA, SSB, ANAS, VZVG2, MMA #### [place] [phone] #### NMOIFA #### [place] [address] [phone] FOLATE, SERUM Collected: 11/26/2017 Status: F Source: [place] 4:42 [facility] REPOSITORY TYPE CODE TESTS RESULT OUT OF REFERENCE UNITS RANGE LAB SERFOL >4.7 ng/mL Folate, 18.0 Serum Performed By: #### CBCDIF, HOMCYS, CMP, CRP, TSH, B12, SERFOL, ANTSSA, SSB, ANAS, VZVG2, MMA #### [place] [phone] #### NMOIFA #### [place] [address] [phone] SSA ANTIBODY Collected: 11/26/2017 Status: F Source: [place] 4:42 [facility] REPOSITORY TYPE CODE TESTS RESULT OUT OF REFERENCE UNITS RANGE LAB ANTSSA <1.0 AI SSA Antibody <0.2 Result Comment: NEGATIVE Negative: <1.0 AI Positive: >0.9 AI Performed By: #### CBCDIF, HOMCYS, CMP, CRP, TSH, B12, SERFOL, ANTSSA, SSB, ANAS, VZVG2, MMA #### [place] [address] #### NMOIFA #### [facility] [address] [address] [phone] SSB ANTIBODY Collected: 11/26/2017 Status: F Source: [place] 4:42 [facility] REPOSITORY TYPE CODE TESTS RESULT OUT OF REFERENCE UNITS RANGE LAB SSB <1.0 AI SSB Antibody <0.2 Result Comment: NEGATIVE Negative: <1.0 AI Positive: >0.9 AI Performed By: #### CBCDIF, HOMCYS, CMP, CRP, TSH, B12, SERFOL, ANTSSA, SSB, ANAS, VZVG2, MMA #### [place] [address] #### NMOIFA #### [address] [address] [phone] AIDEN Collected: 11/26/2017 Status: F Source: [place] 4:42 [facility] REPOSITORY TYPE CODE TESTS RESULT OUT OF RANGE REFERENCE UNITS LAB ANAQL Negative Abnormal Alert AIDEN Positive by EIA, Qual Result Comment: Results are to be used as an aid to diagnosis. Confirmation testing for specific antibodies should be run if a positive assay is obtained. A positive result suggests certain diseases and should be confirmed by clinical findings. LAB ANAEIA OD Ratio AIDEN by 3.0 EIA Result Comment: OD Ratio is interpreted as follows: Negative <1.0 Positive >=1.0 Performed By: #### CBCDIF, HOMCYS, CMP, CRP, TSH, B12, SERFOL, ANTSSA, SSB, ANAS, VZVG2, MMA #### [place] [address] #### NMOIFA #### [address] [address] [phone] VARICELLA ZOSTER IGG Collected: 11/26/2017 Status: F Source: [place] 4:42 [facility] REPOSITORY TYPE CODE TESTS RESULT OUT OF RANGE REFERENCE UNITS LAB VZVGQL Negative Abnormal V. zoster Positive Alert IgG, Qual Result Comment: Presence of detectable VZV IgG antibodies. A positive result generally indicates exposure to the pathogen or administration of specific immunoglobulins, but is no indication of active infection or stage of disease. LAB VZVG Index Value Varicella Zoster IgG 1986.0 Result Comment: Index Values are Interpreted as Follows: Negative specimens <135.0 Equivocal specimens 135.0 to 164.9 Positive specimens >164.9 The magnitude of the measured result is not indicative of the amount of antibody present. Performed By: #### CBCDIF, HOMCYS, CMP, CRP, TSH, B12, SERFOL, ANTSSA, SSB, ANAS, VZVG2, MMA #### [place] [phone] #### NMOIFA #### [address] [address] [phone] METHYLMALONIC ACID Collected: 11/26/2017 Status: F Source: [place] 4:42 [facility] REPOSITORY TYPE CODE TESTS RESULT OUT OF REFERENCE UNITS RANGE LAB MMA 79-376 nmol/L Methylmalonic Acid 173 Result Comment: This test was developed and its performance characteristics determined by [facility] [place] ([facility]). It has not been cleared or approved by the FDA. -[facility] is regulated under CLIA as qualified to perform high-complexity testing. This test is used for clinical purposes. It should not be regarded as investigational or for research. Performed By: #### CBCDIF, HOMCYS, CMP, CRP, TSH, B12, SERFOL, ANTSSA, SSB, ANAS, VZVG2, MMA #### [place] [phone] #### NMOIFA #### [address] [address] [phone] JCV AB/INDX & REFLEX Collected: 11/26/2017 Status: F Source: [place] 4:42 [facility] REPOSITORY TYPE CODE TESTS RESULT OUT OF REFERENCE UNITS RANGE LAB JCVIND JCV Index 0.15 Value LAB JCVAB3 JCV Antibody Negative Result Comment: (NOTE) Index interpretive criteria: <0.20 negative 0.20-0.40 indeterminate >0.40 positive INTERPRETATION Negative: Antibodies to JCV not detected. Indeterminate: Low level reactivity detected, see Inhibition Assay result to follow for the final antibody result. Positive: Antibodies to RAULITO virus (JCV) detected indicating the patient has been exposed to JCV at an undetermined time. The STRATIFY JCV Antibody Test is an enzyme-linked immunosorbent assay (YARIEL) designed to detect JCV antibodies to help identify individuals who have been exposed to the virus. Samples with low level reactivity in the detection assay are retested in a confirmation (inhibition) assay to confirm presence or absence of JCV-specific antibodies. Test Performed at: [facility] [id number] [place] [phone] Deyanira Esparza MD Performed By: #### CBCDIF, HOMCYS, CMP, CRP, TSH, B12, SERFOL, ANTSSA, SSB, ANAS, VZVG2, MMA #### [facility] [address] [id number] #### NMOIFA #### [employer] [address] [address] [phone] NMO AQ 4 IGG Collected: 11/26/2017 Status: F Source: [place] 4:42 PM [facility] REPOSITORY TYPE CODE TESTS RESULT OUT OF REFERENCE UNITS RANGE LAB NMOIF <1:10 NMO Aq 4 <1:10 IgG Result Comment: (NOTE) Aquaporin-4 Receptor Antibody, IgG is not detected. No further testing will be performed. INTERPRETIVE INFORMATION: Neuromyelitis Optica/AQP4-IgG w/Rfx, Ser Diagnosis of neuromyelitis optica (NMO) requires the presence of longitudinally extensive acute myelitis (lesions extending over 3 or more vertebral segments) and optic neuritis. Approximately 75 percent of patients with NMO express antibodies to the aquaporin-4 (AQP4) receptor. While the absence of AQP4 receptor antibodies does not rule out a diagnosis of NMO, presence of this antibody is diagnostic for NMO. Test developed and characteristics determined by [facility]. See Compliance Statement D: [employer] Performed by [facility], [address] [place] [address] [email or web address], Immanuel Petit MD, Lab. Director Performed By: #### CBCDIF, HOMCYS, CMP, CRP, TSH, B12, SERFOL, ANTSSA, SSB, ANAS, VZVG2, MMA #### [facility] [address] [place] [place] [id number] #### NMOIFA #### [facility] [address] [place] [address] [phone] PROGRESS Observed: 11/26/2017 Status: COMPLETED Source: [place] 11:09 AM [facility] REPOSITORY HNO ID: [id number] Author: Aracelis eLyva Service: (none) Author Type: Physician Type: Progress Notes Filed: 11/27/2017 11:41 AM Note Text: ASSESSMENT: 32 year old female 5 months post with acute onset of relapsing neurologic symptoms. The neurologic examination is significant for poor acuity OD and hypesthesia R LE. The Brain MRI is consistent with active MS with 7 nestor enhancing lesions including nestor enhancing R ON. The spinal cord and CSF have not been assessed. She has definite relapsing remitting MS. She has family history of autoimmune conditions. The MS is currently clinically active and radiographically active. She has symptoms referrable to the spinal cord- numbness of the R leg, she will need cervical and thoracic spine MRI The differential diagnosis of MS includes: ADEM, Lyme disease, Vasculitis, Rheumatological disorders, degenerative diseases, vascular insufficiencies and or neoplasia. We have discussed the fact that there is room for error in the diagnosis of MS, I have explained to the patient how their symptoms and test results relate to the diagnosis of MS. The Atypical features of MS include: none The diagnosis is: definite Multiple Sclerosis. The testing that will need to be done includes: screening labs, MRI of C and T spine due to symptoms and examination We have discussed the therapeutic options including some of these listed: Avonex, Betaseron, Copaxone, Tecfidera, Aubagio, Gilenya, Tysabri, Lemtrada and Rebif. I have recommended we screen her labs and determine her best option, we have initially reviewed Gilenya due to the fact she has 7 nestor enhancing lesions, will also check for RAULITO index to see if Tysabri can be used . We will discuss this further at her next visit. She will need IV steroids for her ON and her 7 nestor enhancing brain lesions. IV Solumedrol 1,000 mg x 3days then 12 day Prednisone taper Prednisone 20 mg , #25, 60 mg qd x4 , 40 mg qd x4 then 20 mg qd x4 then stop Pepcid 20 mg po bid, #30 rfx0 while on the steroids She prefers visits at [facility], will treat today at [place] then through home care or [facility], orders in [place]. No driving until visual acuity and cano are improved. The symptoms of MS that need to be addressed include: poor vision OD: We have reviewed a healthy diet for MS would include a Mediterranean diet. I have recommended exercise 3-5 x a week for 30 minutes as tolerated. I have recommended that they see their primary doctor for prevention of and management of co-morbidities. We have discussed family planning and MS. MS patients have a higher risk for Osteoporosis and this is the reason that they should begin taking 1500 mg a day of Calcium with 600mg a day Vitamin D. Reviewed VItamin D3 in MS, goal blood level is 70 to optimize MS therapy I have reviewed the plan with the patient and educated them on the details, they find the plan acceptable and understandable, there are no barriers and they have no further barriers that would prevent them from moving forward with our above plan. Time Spent with Patient: During this patient visit I have spent approximately 30 minutes out of 60 in counselling regarding exercise, treatment options and test results and coordinating care. The patient will have the testing performed at . I will see the patient after testing is complete and review the results. Aracelis Leyva MD PROGRESS Observed: 11/26/2017 Status: COMPLETED Source: [place] 9:01 AM [facility] REPOSITORY HNO ID: [id number] Author: Aracelis Leyva Service: (none) Author Type: Physician Type: Progress Notes Filed: 11/27/2017 11:41 AM Note Text: [facility] NEW PATIENT EVALUATION/CONSULTATION Referral source: SELF Also followed by: Marce Iyer MD [address] [address] PRINCIPAL NEUROLOGIC DIAGNOSIS: MS DISEASE SUMMARY Date of onset: 11/17/17, ON Date of diagnosis of MS: 11/26/17 Disease course at onset: Relapsing-Remitting Current disease course: Relapsing-Remitting Previous disease therapies: None Current disease therapy: None Most recent MRI brain: 11/19/17 Most recent MRI cervical spine: na (ordered) CSF: na JCV serology result and date: na (ordered) HISTORY OF ILLNESS: An opinion on this 32 year old right handed was requested by the patient for potential Multiple Sclerosis. The patient was accompanied by her spouse. Previous records (physician notes, laboratory reports, and radiology reports) and imaging studies were reviewed and summarized. My recommendations will be communicated back to the patient's physician(s) via electronic medical record. Follow-up is expected to be with me at the [facility]. Ms. Tsai is a 32 yo female presenting for evaluation of potential MS diagnosis in setting of new ON. She has a pmh most sig for: - Family hx of autoimmune disease (detailed in note) - 5.5mo ago w/ preg c/b gestational diabetes History obtained via patient. On 11/17/17, pt noted that her vision was only 50% of what it normally is in her R eye only. Described vision as very merky, li, blurry. Saturday morning it had continued worsening w/ no swollen sensation with eye movement but denied juliet pain. Symptoms lead to her being assessed by coater slate who referred to opthalmology. At the optometry office, she states that she had a deficit in her temporal visual field in her R eye. At the ophtalmologist she states that she was unable to identify any colors upon testing. Her opthalmologist was concerned for optic neuritis and ordered an MRI Brain. (OD 20/100 w/ APD, OS 20/30 at that visit). 11/19/17 MRI Brain w/wo showed b/l periventricular FLAIR changes, increased signal in R retro-orbital area w/ 7 enhancing lesions (including R optic nerve). By Saturday (11/19), she had lost all aspects of vision, w/ every thing appearing dark, li black. By Saturday afternoon, she was able to identify light/ dark and motion and by yesterday (11/25) she was able to detect color variation and outlines of objects. In association w/ above symptoms, she has been experiencing her R leg becoming circumferential numb from hip to bottom of foot (more of a fine touch numbness with gross sensations of pressure intact) for roughly 3-4 wks. Feels that it gets worse while in shower. Nothing improves (including positioning). She first attributed this to possible sciatica from . Endorses: insomnia, anxiety since having her baby that has been improving over the past couple of weeks. During episode she denies any SHEIKH, ptosis, diplopia, focal weakness, changes in speech, dysphagia, new urinary retention/incontinence, bowel changes, family hx of MS. Current Symptoms: 1. Vision: - R eye: still blurry, able to detect object/outlines, and contrast in dark/light colors. No longer having swelling sensation in eyes. 2. R Leg: - R Leg: Dec sensation to light touch. Able to detect gross sensations. Family History: Mother: granuloma annulare, psoriasis roses, pericarditis assoc w/ , aortic aneursym, Sister: Aortic Aneursym, maternal grandfatherpemphigoid maternal aunt w/ lupus, aortic aneursym. Regarding Recent : - C/b gestational diabetes, now under control - Normal spontaneous vaginal delivery - Menstrual cycle has restarted on 10/26/17. Breast feeding at night only now. PAST HISTORY: PAST MEDICAL HISTORY Diagnosis Date - Gestational diabetes mellitus, class A1 04/01/2017 - NEGATIVE MEDICAL HISTORY PAST SURGICAL HISTORY Procedure Laterality Date - TONSILLECTOMY HX Transfusions: None Current Outpatient Prescriptions: OMEGA-3S/DHA/EPA/FISH OIL (OMEGA 3 ORAL) Take by mouth. Andreas-3, Pt takes 2 softgels daily Gnlehanc-Lp-Kkw-Fe-FA ( VITAMIN) tab Take 1 tablet by mouth. glyBURIDE (MICRONASE, DIABETA) 1.25 mg tablet Take 1 tablet by mouth daily with breakfast. COMPOUNDED PRESCRIPTION Massage Therapy for Sciatic Pain Blood-Glucose Meter misc 1 Each as directed. blood sugar diagnostic test strip 1 Strip four times daily. Use as instructed Lancets lancets 1 Each four times daily. Use as instructed Urine Glucose-Ketones Test (KETO-DIASTIX) strp 1 Strip four times daily. AMOXICILLIN ORAL Take by mouth. clotrimazole-betamethasone (LOTRISONE) cream Apply 1 application to affected area twice daily. No current facility-administered medications for this visit. 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 Social History Main Topics Smoking status: Never Smoker Smokeless status: Never Used Alcohol use: No Drug use: No FAMILY HISTORY Problem Relation Age of Onset - Heart Mother PACEMAKER/aortic aneurysm, age 40 - Hypertension Mother - Diabetes Father - Hypertension Father - Lipids Father - Asthma Sister - Heart Sister - Hypertension Brother - Prostate Cancer Maternal Grandfather - Heart Paternal Grandfather ID - Breast Cancer Maternal Aunt - Cancer Paternal Uncle PANCREATIC REVIEW OF SYSTEMS: Comprehensive review of systems otherwise was negative, including constitutional, head and neck, cardiovascular, pulmonary, gastrointestinal, endocrine, urologic, reproductive, rheumatic, hematologic, immunologic, dermatologic, and psychiatric. Nutritional concerns: None Driving issues: Yes, due to decreased R temporal vision loss in R eye Safety concerns regarding living situations and safety at home: None Risk of falls: None Pain: None PHYSICAL EXAM: Hair, skin, nails, and joints were normal. Neck was supple without Lhermitte's phenomenon. There was no percussion tenderness over the spine. The patient was alert and oriented to person, place, and time with normal language, attention and concentration, recent and remote memory, praxis, and intellectual function. Affect was normal. The patient did not appear depressed. Visual acuity to near card was as follows: OD= 20/200 (with glasses) OS= 20/20+ (with glasses). Visual cano were full to confrontation. Pupils were 4.5 mm and briskly reactive OS and Slowly reactive OD. + relative afferent pupillary defect in OD. Funduscopic examination was normal without disc edema, erythema, or atrophy. Ocular ductions were full without nystagmus or ataxia. Facial sensation was normal. Muscles of mastication and facial expression moved normally. Hearing was normal. Gag reflex and palatal movements were normal. Sternocleidomastoid and trapezius power were normal. Tongue movements were normal. There was no dysarthria. Motor Examination: There was no pronator drift. Right Upper Extremity: Left Upper Extremity: Deltoid 5/5 Deltoid 5/5 Biceps 5/5 Biceps 5/5 Triceps 5/5 Triceps 5/5 Finger extensors 5/5 Finger extensors 5/5 Finger flexors 5/5 Finger flexors 5/5 Dorsal interossei 5/5 Dorsal interossei 5/5 Abductor pollicis 5/5 Abductor pollicis 5/5 Tone (Phoebe scale) 0 Tone (Phoebe scale) 0 Right Lower Extremity: Left Lower Extremity: Hip flexors 5/5 Hip flexors 5/5 Hip extensors 5/5 Hip extensors 5/5 Knee flexors 5/5 Knee flexors 5/5 Knee extensors 5/5 Knee extensors 5/5 Dorsiflexors 5/5 Dorsiflexors 5/5 Plantarflexors 5/5 Plantarflexors 5/5 Toe extensors 5/5 Toe extensors 5/5 Toe flexors 5/5 Toe flexors 5/5 Tone (Phoebe scale) 0 Tone (Phoebe scale) 0 Reflexes: brachioradialis ++ brachioradialis ++ biceps ++ biceps ++ triceps ++ triceps ++ patellar ++ patellar ++ Achilles ++ Achilles ++ plantar response down plantar response down Coordination testing in the arms and legs was performed including [id number], rapid-alternating, and fine movements. Rapid movements were smooth with good yoselyn and there was no dysmetria or ataxia. No signs of cerebellar dysfunction. Sensory examination: Light touch and PP: Dec by up to 60% from R hip to R sole of foot circumferentially w/ prox>distal. Normal all other extremities. Vibration: Mildly reduced on RLE in same distribution as sensory loss described above. Normal in LLE Proprioception: Normal bilateral lower extremities. Romberg's test was normal. Gait was normal, including heel, toe, and tandem walking. QUANTITATIVE SCORES: EDSS Not Scored Timed 25-foot walk: 4.8 seconds. Assistive device: None. 9-Hole peg test (sec): right: 17.4 left: 18.7 REVIEW OF OUTSIDE RECORDS: MRI Brain w/wo 11/19/17 Opthalmology Records from 11/18/17 and 11/20/17 REVIEW OF IMAGING STUDIES: I personally reviewed the following images: MRI Brain w/wo 11/18/17 ASSESSMENT: 32 yo female w/ hx sig for normal vaginal delivery w/ hx of normal delivery of 4th baby w/ preg c/b gestational diabetes ~5.5mo ago and fam hx of autoimmune disease presenting today after first episode of ON on 11/17/17 and more remote RLE sensory complaints since 3-4wks. Her exam is notable for RAPD, dec visual acuity in OD, and up to 60% reduction in light touch and PP from R hip to R sole of foot. MRI Brain w/wo from 2/6 w/ multiple FLAIR hyperintensities and 7 enhancing lesions all indicative of demyelinating process. Given Brain imaging w/ evidence of new and old lesions and now 2 clinical attacks, she meets criteria for MS once other lab work rules out other potential etiologies (demyelinating diseases such as NMO, ADEM, etc or other autoimmune disease. Less likely vascular given subacute progressions) for symptoms. PLAN: - IVMP 1g x 3 days + 12 days oral steroid regimen (60mg x4 days, 40mg x 4 days, 20mg x 4 days) for acute episode of ON - Given Pepcid 20mg bid w/ steroids - Vit D 2000IU daily - Spinal imaging: - MRI w/wo C, T spine - Labs: - CBC, CMP, JCV, VZV, AIDEN, SSA/SSB, Vit D, CRP, Folate, MMA, B12, Aquaporin-4 - FU in 6 weeks to discuss labs and potential disease modifying therapy via Gilenya I spent 90 minutes in this visit, with >50% direct patient time spent counseling about prognosis, treatment options, and coordination of care. Venita Cadet DO PGY-II Adult Neurology [facility] ASSESSMENT: 32 year old female 5 months post with acute onset of relapsing neurologic symptoms. The neurologic examination is significant for poor acuity OD and hypesthesia R LE. The Brain MRI is consistent with active MS with 7 nestor enhancing lesions including nestor enhancing R ON. The spinal cord and CSF have not been assessed. She has definite relapsing remitting MS. She has family history of autoimmune conditions. The MS is currently clinically active and radiographically active. She has symptoms referrable to the spinal cord- numbness of the R leg, she will need cervical and thoracic spine MRI The differential diagnosis of MS includes: ADEM, Lyme disease, Vasculitis, Rheumatological disorders, degenerative diseases, vascular insufficiencies and or neoplasia. We have discussed the fact that there is room for error in the diagnosis of MS, I have explained to the patient how their symptoms and test results relate to the diagnosis of MS. The Atypical features of MS include: none The diagnosis is: definite Multiple Sclerosis. The testing that will need to be done includes: screening labs, MRI of C and T spine due to symptoms and examination We have discussed the therapeutic options including some of these listed: Avonex, Betaseron, Copaxone, Tecfidera, Aubagio, Gilenya, Tysabri, Lemtrada and Rebif. I have recommended we screen her labs and determine her best option, we have initially reviewed Unique due to the fact she has 7 nestor enhancing lesions, will also check for RAULITO index to see if Tysabri can be used . We will discuss this further at her next visit. She will need IV steroids for her ON and her 7 nestor enhancing brain lesions. IV Solumedrol 1,000 mg x 3days then 12 day Prednisone taper Prednisone 20 mg , #25, 60 mg qd x4 , 40 mg qd x4 then 20 mg qd x4 then stop Pepcid 20 mg po bid, #30 rfx0 while on the steroids She prefers visits at [place], will treat today at [place] then through home care or [place], orders in [place]. No driving until visual acuity and cano are improved. The symptoms of MS that need to be addressed include: poor vision OD: We have reviewed a healthy diet for MS would include a Mediterranean diet. I have recommended exercise 3-5 x a week for 30 minutes as tolerated. I have recommended that they see their primary doctor for prevention of and management of co-morbidities. We have discussed family planning and MS. MS patients have a higher risk for Osteoporosis and this is the reason that they should begin taking 1500 mg a day of Calcium with 600mg a day Vitamin D. Reviewed VItamin D3 in MS, goal blood level is 70 to optimize MS therapy I have reviewed the plan with the patient and educated them on the details, they find the plan acceptable and understandable, there are no barriers and they have no further barriers that would prevent them from moving forward with our above plan. Time Spent with Patient: During this patient visit I have spent approximately 30 minutes out of 60 in counselling regarding exercise, treatment options and test results and coordinating care. The patient will have the testing performed at . I will see the patient after testing is complete and review the results. [facility]acelis Leyva MD [facility] Observed: 11/26/2017 Status: COMPLETED Source: [place] 12:00 AM [facility] REPOSITORY Telephone (NEMN) EULALIOARGENIS ([id number]) 1985 F Date Time Provider Department 11/26/17 ARACELIS LEYVA During your visit today, we recorded the following information about you: Germaine Burrell Microbiology Manager 11/26/2017 11:00 AM Signed Pharmacist asking if he is provider wants him to dispense the vials for the patient solumedrol Aracelis Leyva MD 11/26/2017 11:06 AM Signed no, this is an error, cancel please Caesar Riley, RN, RN 11/26/2017 11:12 AM Signed Returned call to Lizandro at [facility]. Advised him this was an error, please cancel the Solu-Medrol but keep the prednisone taper and Pepcid. Allergies As of Date: 11/26/2017 Noted Allergy Reaction MACRODANTIN (NITROFURANTOIN MACRO*04/12/2014 4 - Hives 12 - Shortness of Breath Comments: TACHYCARDIA SULFA (SULFONAMIDE ANTIBIOTICS) 04/12/2014 4 - Hives Date Reviewed: 11/26/2017 Reviewed by: Nataly Hartley - Fully Assessed Reason for Visit: Medication Question [8358] Prescriptions as of 11/26/2017 Sig: IV CONTRAST (RADIOLOGY PROCED* MRI TSP Inject, intravenousl* IV CONTRAST (RADIOLOGY PROCED* MRI CSP Inject, intravenousl* PREDNISONE 20 MG TABLET 3 TABS DAILY FOR 4 DAYS, THEN* FAMOTIDINE 20 MG TABLET Take 1 tablet by mouth twice * X METHYLPREDNISOLONE SODIUM SUC* Inject 1,000 mg intravenously* COMPOUNDED PRESCRIPTION Massage Therapy for Sciatic P* X GLYBURIDE 1.25 MG TABLET Take 1 tablet by mouth daily * BLOOD-GLUCOSE METER 1 Each as directed. BLOOD SUGAR DIAGNOSTIC STRIPS 1 Strip four times daily. Use* LANCETS 1 Each four times daily. Use * URINE GLUCOSE-KETONES TEST ST* 1 Strip four times daily. X AMOXICILLIN ORAL Take by mouth. CLOTRIMAZOLE-BETAMETHASONE 1 * Apply 1 application to affect* OMEGA 3 ORAL Take by mouth. Omeg* VITAMIN,CALCIUM,MINE* Take 1 tablet by mouth. Problem List As Of Date 11/26/2017 Noted Resolved Family history of congenital heart defect [Z82.*INVALID FOR*07/25/2017 More... Family history of cystic fibrosis [Z83.49] INVALID FOR*07/25/2017 More... Vaginal discharge in [O26.899, N89.8] INVALID FOR*04/28/2014 More... More... More... History of oligohydramnios in prior , *INVALID FOR*07/25/2017 Encounter for supervision of normal i*INVALID FOR*07/25/2017 Abnormal glucose affecting [O99.810] INVALID FOR*07/25/2017 More... Gestational diabetes mellitus, class A1 [O24.41*INVALID FOR*07/25/2017 Multiple sclerosis (HCC) [G35] INVALID FOR* Encounter Status:Closed by ARACELIS LEYVA MD on 11/26/17 PATTI Observed: 11/26/2017 Status: COMPLETED Source: [place] 12:00 AM [facility] REPOSITORY Telephone (HEMSOCORRO) ARGENIS TSAI ([id number]) 1985 F Date Time Provider Department 11/26/17 STEPHANIE ROSARIO During your visit today, we recorded the following information about you: Temitope Foss Psr 11/26/2017 12:22 PM Signed Patient called to schedule steroid infusions which were referred by Aracelis Leyva from [facility]. Patient lives in [place] and would like to come to [facility] rather than [facility] for her treatments. Patient can be reached at [phone] to schedule. If you have any questions you can call her back. Lesley Shukla PSR 11/26/2017 3:29 PM Signed Called patient to schedule who stated now was not a good time. I will call patient back later today. Patient is already scheduled for her 3 doses of solumedrol. I will confirm these dates and times with her. Lesley Shukla PSR 11/26/2017 4:20 PM Signed Patient relayed dates/times. Stated she would call back if she did not want to wait that long to keep dates. Allergies As of Date: 11/26/2017 Noted Allergy Reaction MACRODANTIN (NITROFURANTOIN MACRO*04/12/2014 4 - Hives 12 - Shortness of Breath Comments: TACHYCARDIA SULFA (SULFONAMIDE ANTIBIOTICS) 04/12/2014 4 - Hives Date Reviewed: 11/26/2017 Reviewed by: Nataly Hartley - Fully Assessed Reason for Visit: steroid infusion treatments [Other] Prescriptions as of 11/26/2017 Sig: IV CONTRAST (RADIOLOGY PROCED* MRI TSP Inject, intravenousl* IV CONTRAST (RADIOLOGY PROCED* MRI CSP Inject, intravenousl* PREDNISONE 20 MG TABLET 3 TABS DAILY FOR 4 DAYS, THEN* FAMOTIDINE 20 MG TABLET Take 1 tablet by mouth twice * COMPOUNDED PRESCRIPTION Massage Therapy for Sciatic P* BLOOD-GLUCOSE METER 1 Each as directed. BLOOD SUGAR DIAGNOSTIC STRIPS 1 Strip four times daily. Use* LANCETS 1 Each four times daily. Use * URINE GLUCOSE-KETONES TEST ST* 1 Strip four times daily. CLOTRIMAZOLE-BETAMETHASONE 1 * Apply 1 application to affect* OMEGA 3 ORAL Take by mouth. Omeg* VITAMIN,CALCIUM,MINE* Take 1 tablet by mouth. Problem List As Of Date 11/26/2017 Noted Resolved Family history of congenital heart defect [Z82.*INVALID FOR*07/25/2017 More... Family history of cystic fibrosis [Z83.49] INVALID FOR*07/25/2017 More... Vaginal discharge in [O26.899, N89.8] INVALID FOR*04/28/2014 More... More... More... History of oligohydramnios in prior , *INVALID FOR*07/25/2017 Encounter for supervision of normal i*INVALID FOR*07/25/2017 Abnormal glucose affecting [O99.810] INVALID FOR*07/25/2017 More... Gestational diabetes mellitus, class A1 [O24.41*INVALID FOR*07/25/2017 Multiple sclerosis (HCC) [G35] INVALID FOR* Encounter Status:Closed by TEMITOPE FERNANDES on 11/26/17 ,URINE Collected: 11/19/2017 Status: F Source: ANYA 4:14 PM [facility] REPOSITORY Order Comment: CALL TO 5713 TYPE CODE TESTS RESULT OUT OF REFERENCE UNITS RANGE LAB L400.8000 Negative Normal HCGUQUAL Negative Result Comment: Very dilute urine specimens, as indicated by a low specific gravity, may not contain corporate sales representative levels of hCG. If is still suspected, a first morning urine specimen should be collected 48 hours later and tested. Performed By: #### [id number] #### [facility] [address] [place], [address] BRAIN W/WO CONTRAST Observed: 11/19/2017 Status: F Source: [place] 3:47 PM [facility] REPOSITORY [facility] [address] [place] [address] Brain W/WO Contrast MR#: [id number] Acct: [id number] Name: ARGENIS TSAI Rep #: [id number] : 1985 F 32 From: Aron Mcfadden MD PCP: Aracelis Hurd NP Status: REG CLI Study: Brain W/WO Contrast Date of Exam: 11/19/17 Exam# [id number] Ordering Dr: Aron Perez MD STUDY: MRI BRAIN WITH AND WITHOUT CONTRAST REASON FOR EXAM: Female, 32 years old. Right optic neuritis and fullness with blurred vision TECHNIQUE: Standardized multiplanar fat and water weighted pulse sequences were obtained. 9 ml of Gadavist contrast material was administered intravenously for the contrast portion of the examination. COMPARISON: None. FINDINGS: Normal size of the ventricles and extra-axial spaces for the patient's age. There are multiple nonspecific bilateral periventricular white matter lesions several of which involve the septal callosal interface and in a female patient of this age may be consistent with multiple sclerosis. Normal bilateral basal ganglia. Normal thalami. There is no extra-axial fluid accumulation. Normal flow voids within the major intracranial circulation suggesting patency by spin echo criteria. Normal venous enhancement. There are enhancing foci in the right posterior temporal and parietal lobes which may be consistent with actively demyelinating plaque. Normal sella turcica, pituitary gland, infundibular stalk, optic chiasm and hypothalamus. Normal tectal plate and pineal gland. Normal midbrain, altagracia and medulla. Normal cerebellum. Normal basal cisterns. Normal bilateral temporal bones. Normal bilateral internal auditory canals. There is increased signal intensity seen within the retro- orbital portion of the right optic nerve which also enhances consistent with optic neuritis and enhancing plaque.. There is mild mucosal thickening within the maxillary and ethmoid sinuses bilaterally. Normal calvarium and skull base. Normal visualized soft tissue structures. Normal visualized upper cervical spine. MRI/Brain W/WO Contrast IMPRESSION: Findings which may be consistent with multiple sclerosis in association with right optic neuritis and enhancing plaque in the right optic nerve as well as the right posterior temporal and parietal lobes consistent with acute demyelination Electronically Signed: Aron Mcfadden MD at 18:04 EST , Service support , CC: Aracelis Hurd NP; Aron Perez MD Account Manager Trainee: Signed MR-BRAIN W/WO Observed: 11/19/2017 Status: F Source: [place] CONTRAST IMPORT 12:00 AM [facility] [place] REPOSITORY Images were obtained outside of [facility] [id number] ALLERGIES ALLERGIES DATE TYPE / NAME / CODE REACTION SEVERITY SOURCE CODE 02/06/2018 Drug nitrofurantoin Hives Unknown [place] Allergy/41 macrocrystalline/F0000 Community [id number]( [address](RXNO) [facility] CT) Repository 02/06/2018 Drug Sulfa (Sulfonamide Hives Unknown [place] Allergy/41 Antibiotics)/[id number] [facility] [id number]([facility](RXNO) [facility] CT) Repository 04/12/2014 DRUG NITROFURANTOIN HIVES [place] INGREDI/41 MACROCRYSTALLINE Clinic Main [id number]([facility] OMED CT) Repository 04/12/2014 Drug SULFA (SULFONAMIDE HIVES [place] Class/4195 ANTIBIOTICS) Clinic Main [address]([facility] ED CT) Repository ENCOUNTERS ENCOUNTERS ADMIT/DISCHARGE ACCOUNT ADMITTING ENCOUNTER LOCATION SOURCE NUMBER CLASS 11/05/2018 [id number] Ambulatory [facility] ing:MRI Repository 10/24/2018/10/27/19 [id number] Ambulatory [address] Main [place] Repository 07/16/2018/07/17/20 [id number] Ambulatory [address] Repository 02/13/2018 [id number] Ambulatory [facility] Repository 02/11/2018 [id number] Ambulatory [facility] ing:OPBI Repository 02/06/2018/02/07/20 [id number] Emergency [address] ing:ED Repository 02/04/2018/02/05/20 [id number] Ambulatory [address] Main [place] Repository 12/13/2017/12/14/19 [id number] Ambulatory [address] Repository 11/29/2017/12/02/19 [id number] Ambulatory [address] Repository 11/28/2017/11/29/19 [id number] Ambulatory [address] Repository 11/27/2017/11/28/19 [id number] Ambulatory [address] Repository 11/26/2017 [id number] Ambulatory [facility] Repository 11/26/2017/11/29/19 [id number] Ambulatory [address] Repository 11/19/2017 [id number] [facility] ing:MRI Repository PAYERS PAYERS ENCOUNTER GUARANTOR PAYER SUBSCRIBER SOURCE 11/05/2018 ARGENIS Hernandez Primary Insurance:[facility] ARGENIS [place] [id number] PACKAGE PLANPolicy NIEMANDOB: Community [facility] Number: 1[id number] Date:2018-10-24 Repository [id number]: () 11/05/2018 [facility] Number: Effective Repository Date:2018-10-24 02/11/2018 ARGENIS Hernandez Primary Insurance:[facility] ARGENISJEFF [id number] PACKAGE PLANPolicy NIEMANDOB: Community [facility] Number: 1[place]ive [id number] Date:2018-02-07 Repository [id number]: () 02/11/2018 Secondary NOT GIVENUNK [place] Insurance:SELF PAY [facility] Number: Effective Repository Date:2018-02-07 02/06/2018 ARGENIS E Primary NOT GIVENUNK [place] [id number] Insurance:SELF PAY [place] Number: Effective Repository [id number]: ([phone]) Date:2018-02-06 [phone] () 11/19/2017 ARGENIS Primary NOT GIVENUNK [place] [id number] Insurance:SELF PAY [place] Number: Effective Repository [phone]: ([phone]) Date:2017-11-18 [phone] ()
== END ==
PROVIDERS: Family Provider Nurse Practitioner; PCP Nurse Practitioner; Visit Provider Obstetrics & Gynecology
DX: N63.11 Unspecified lump in the right breast, upper outer quadrant (principal); N63.20 Unspecified lump in the left breast, unspecified quadrant; G35 Multiple sclerosis
CPT/HCPCS: 70553; 76642; 77062; 77066; A9585; G0279

== ENCOUNTER → 2019-07-15 09:31 | Outpatient (CLI) | payer SELFPAY ==
--- NOTE | 2019-07-15 09:41 | STE_ITS ---
Reason For Study: Chest Pain; Dyspnea Stress Results Protocol: Gu[facility]ume Protocol Maximum Predicted HR: 188 bpm Target HR: 160 bpm % Maximum Predicted HR: 95 % DurationHeart Rate Stage (mm:ss) (bpm) BP Comment Baseline 89 110/76Mild Chest Pressure [facility]ume Protocol Stage I 3:00 115 122/58Mild Chest Pressure; Mild Dyspnea [facility]ume Protocol Stage II 3:00 130 140/64Mild Chest Pain; Mild Dyspnea [facility]ume Protocol Stage III 3:00 153 158/62Mild Chest Pressure; Mild Dyspnea Gu[facility]ume Protocol Stage IV 1:00 179 / Mild Chest Pressure; Mild Dyspnea Recovery 109 112/60Mild Chest Pressure; No Dyspnea Stress Duration: 10:00 mm:ss Maximum Stress HR: 179 bpm METS: 13 Baseline Echocardiogram Findings The estimated ejection fraction is 65 %. Stress Echo Wall motion Data Resting WM Intermediate WM Stress WM Resting Wall Motion Wall Motion Stress No regional wall motion No regional wall motion abnormalities noted. abnormalities noted. EKG Data The baseline ECG displays normal sinus rhythm. The patient exercised according to the regular Guillaume protocol for a total duration of 10:00. The maximum heart rate attained was 181 beats per minute. This was 96% of maximum predicted heart rate. The patient exercised into stage 4 of the Guillaume protocol. At peak exercise, upsloping ST changes only were noted, which did not meet the criteria for ischemia. No clinical angina was noted. Interpretation Summary The estimated ejection fraction is 65 %. Normal, adequate, treadmill echocardiogram. Negative for ischemia by EKG and echocardiographic criteria. No anginal symptoms noted. No arrhythmias noted. Appropriate blood pressure response to exercise. Average exercise capacity for age. Final LVEF is 75%. Test terminated due to dyspnea. No complications. Ordering Physician: Soham Krishnan Referring Physician: Neymar Smart Performed By: Nahomi Alcala, EDIL, RVT
== END ==
PROVIDERS: Family Provider Physician Assistant; PCP Physician Assistant; Referring Provider Physician Assistant; Visit Provider Physician Assistant
DX: R06.02 Shortness of breath (principal); R00.0 Tachycardia, unspecified; R07.89 Other chest pain
CPT/HCPCS: 93017; 93350

== ENCOUNTER → 2019-07-23 08:49 | Outpatient (CLI) | payer SELFPAY ==
[2019-07-21 13:55] VITALS: BMI 31.6
--- NOTE | 2019-07-23 08:52 | CT_ITS ---
STUDY: CT CHEST WITH CONTRAST REASON FOR EXAM: Female, 34 years old. Shortness of breath and palpitations. RADIATION DOSAGE (If Supplied By Facility): CTDIvol = ( 12.01 ) mGy, DLP = ( 433.33 ) mGycm TECHNIQUE: Transaxial imaging was performed following intravenous administration of IV Isovue 300 100. Individualized dose optimization techniques were used for this CT. COMPARISON: None. FINDINGS: The lungs are normal. There is no demonstrated pleural abnormality. Normal heart and pericardium. Normal mediastinum. Normal hilar regions. Normal enhanced pulmonary arteries. Normal aorta arch and descending thoracic aorta. Normal osseous structures. There is no demonstrated abnormality of the visualized upper abdomen. CT/Chest WITH Contrast IMPRESSION: Normal enhanced CT Chest examination. Electronically Signed: George Nino MD at 18:53 EDT , Service support ,
== END ==
PROVIDERS: Family Provider Physician Assistant; PCP Physician Assistant; Referring Provider Specialist; Visit Provider Specialist
DX: R06.02 Shortness of breath (principal)
CPT/HCPCS: 71260; Q9967

== ENCOUNTER → 2019-07-23 08:52 | Outpatient (REF) | payer SELFPAY ==
[2019-07-21 13:55] VITALS: BMI 31.6
== END ==
LOC: CT 08:52
PROVIDERS: Family Provider Physician Assistant; PCP Physician Assistant
DX: R00.2 Palpitations (principal); R06.02 Shortness of breath
CPT/HCPCS: 93270

== ENCOUNTER → 2019-07-31 11:56 | Outpatient (CLI) | payer SELFPAY ==
[2019-07-21 13:55] VITALS: BMI 31.6
--- NOTE | 2019-07-31 11:59 | ECHOD_ITS ---
Reason For Study: MA, Chest Pressure, Palpitations Procedure This was a 2D Doppler, Color Flow transthoracic echocardiogram. Exam performed in department. Left Ventricle Normal size and thickness. The estimated ejection fraction is 60 %. No evidence for diastolic dysfunction. No regional wall motion abnormalities noted. Right Ventricle Normal RV size. Normal systolic function. Atria Normal left atrium. Normal right atrium. No doppler evidence for ASD. Bubble contrast study negative for right to left interatrial shunt. Mitral Valve There is no mitral valve stenosis. No mitral valve insufficiency. Tricuspid Valve There is no tricuspid stenosis. Trivial tricuspid valve insufficiency. Normal pulmonary artery pressure. Aortic Valve Trisinus/trileaflet aortic valve. There is no aortic stenosis. No aortic valve insufficiency. Pulmonic Valve There is no pulmonic valvular stenosis. No pulmonic valve insufficiency. Great Vessels Normal aortic root. Pericardium/Pleural No pericardial effusion. Medication Performed a rapid injection of agitated mix of 9 cc saline and 1cc air to assess for atrial septal defect. MMode/2D Measurements & Calculations LVIDd: 4.2 cm IVSd: 0.82 cm Ao root diam: 2.8 cm LVIDs: 2.6 cm LVPWd: 1.1 cm RVDd: 3.8 cm FS: 39.6 % LAV(MOD-bp): 33.4 ml LVAd ap4: 23.1 cm2 SV(MOD-sp4): 36.0 ml LAV(MOD-bp) Indexed: 16.9 ml/m2 EDV(MOD-sp4): 59.8 ml LAV(MOD-sp2): 32.8 ml EDV(sp4-el): 59.9 ml LAV(MOD-sp4): 30.0 ml LVAs ap4: 12.4 cm2 ESV(MOD-sp4): 23.7 ml ESV(sp4-el): 22.9 ml EF(MOD-sp4): 60.3 % EF(sp4-el): 61.8 % SV(sp4-el): 37.1 ml LA A4 area: 13.4 cm2 LA dimension(2D): 3.1 cm RA A4 area: 11.5 cm2 Doppler Measurements & Calculations MV E max jalil: 103.0 cm/sec Lat Peak E' Jalil: 13.5 cm/sec Med Peak E' Jalil: 14.2 cm/sec MV A max jalil: 55.0 cm/sec E/E' lat: 7.6 E/E' med: 7.3 MV E/A: 1.9 Ao V2 max: 189.1 cm/sec LV V1 max: 153.7 cm/sec PA V2 max: 132.9 cm/sec Ao max P.3 mmHg LV V1 max P.4 mmHg Ao V2 mean: 133.5 cm/sec Ao mean P.8 mmHg Ao V2 VTI: 32.5 cm TR max jalil: 243.1 cm/sec TR max P.6 mmHg Interpretation Summary The estimated ejection fraction is 60 %. No evidence for diastolic dysfunction. Bubble contrast study negative for right to left interatrial shunt. Ordering Physician: Gabino Rasheed Referring Physician: Soham Krishnan Performed By: Nahomi Alcala, EDIL, RVT
--- NOTE | 2019-07-31 14:19 | PFTCOMP_ITS ---
COMPLETE PULMONARY FUNCTION TEST INTERPRETATION Brief HPI: Patient is a 34 year old female, currently under the care of Dr. Rasheed, who presents to [facility] for complete pulmonary function tests secondary to diagnosis of dyspnea. Respiratory therapist reports good effort and reproducible results. Interpretation: Forced expiration spirometry shows no large airways obstructive ventilatory defect with an FEV1 of 109% predicted. There is no significant bronchodilator response by strict ATS criteria. Spirograms are of good quality and plateau normally. The respiratory flow volume loop shows a normal pattern. Lung volumes by body plethysmography show a normal total lung capacity at 6.07 L, 110% predicted. All other lung volumes are within normal limits. Diffusion capacity by carbon monoxide is normal at 91% predicted. The airway resistance is normal. No previous pulmonary function tests were available for review. Impression: These pulmonary function tests are within normal limits.
== END ==
PROVIDERS: Family Provider Physician Assistant; PCP Physician Assistant; Referring Provider Specialist; Visit Provider Specialist
DX: R06.02 Shortness of breath (principal); R07.89 Other chest pain; R00.2 Palpitations
CPT/HCPCS: 93306; 94060; 94726; 94729; A4216

== ENCOUNTER → 2019-10-27 08:31 | Outpatient (CLI) | payer SELFPAY ==
[2019-09-30 09:32] VITALS: BMI 28.8
[2019-10-27 08:47] LABS: Hematocrit 39.2 % (37-47); Hemoglobin 13.1 g/dL (12.0-15.0); Mean Corp Hgb Conc 33.4 g/dL (32-36); Mean Corpuscular Hgb 29.6 pg (27.0-32.0); Mean Corpuscular Volume 88.5 fL (81-99); Mean Platelet Vol. 10.2 fl (6.2-12.0); Platelet Count 253 K/mm3 (150-450); RBC Distribution Width CV 13.1 % (11.6-14.6); RBC Distribution Width SD 42.5 fl (35.1-43.9); Red Blood Count 4.43 M/mm3 (4.2-5.4); White Blood Count 10.7 K/mm3 (4.4-11.0)
[2019-10-27 09:01] LABS: Internal QC Validated? YES +Cl - CLEAR BKGD; Pregnancy, Serum, hCG Quali. NEGATIVE Negative
[2019-10-27 09:09] LABS: Anion Gap 5 (5-15); BUN 11 mg/dL (7-18); BUN/Creat Ratio 15.4 RATIO (10-20); Calcium,Total 8.5 mg/dL (8.5-10.1); Chloride 108 mmol/L (98-107); Creatinine, Serum 0.71 mg/dL (0.55-1.02); EST Glomerular Filtration Rate 100 mL/min (>60); Est Glom Filt Rate - Afr Amer 121 mL/min (>60); Glucose 92 mg/dL (74-106); Sodium Level 139 mmol/L (136-145)
--- NOTE | 2019-10-27 16:09 | TILTTABLE_ITS ---
- Staff Staff: Germaine Melendez, - - Ramya Melton - Summary Pre Test Resting HR: 85 - Alert and oriented: Warm and dry Pre Test Resting BP: 126/66 - Alert and oriented: Warm and dry Minimum Test HR: 58 - Pale and clammy Maximum Test HR: 118 - Flushed and clammy Minimum Test BP: 0/0 - Pale and clammy Maximum Test BP: 122/70 - Alert and oriented: Warm and dry Reason for Test Termination: Reached Maximum Test Time Physician Tilt Table Report - Patient's Physicians Primary Care Physician: Josias Krishnan Stripper And Printer: Bhavik Dyer Indications/Diagnosis: Dizziness/lightheadedness Procedure Comments: The patient was brought to the tilt table laboratory laid supine on the tilt table. The patient was alert and oriented and warm and dry. The resting heart rate was 85 bpm with a resting blood pressure 126/66 mmHg. The cardiac rhythm was normal sinus rhythm. The patient was placed in the 70 degree upright tilt table position for approximately 20 minutes. The patient remained awake and complained of symptoms of feeling hazy, dizzy, everything black , nauseated/emesis, and subsequently cool. The patient was noted to become diaphoretic and clammy. The patient did not lose consciousness. The patient was noted to have a minimal heart rate of 58 bpm at which time no blood pressure was obtained and a maximal heart rate of 118 bpm at which time no blood pressure was obtained. The patient was noted to remain in sinus rhythm/sinus bradycardia. The patient was noted to have an isolated PVC. The patient was returned to the supine position. The patient was monitored in the supine position. She had a concluding heart rate of 93 bpm and a concluding blood pressure 119/71 mmHg. She was alert and oriented and warm and dry and taking oral intake. She remained in sinus rhythm. The patient was subsequently released from the tilt table laboratory. Summary: 70 degree upright tilt table study compatible with vasovagal physiology symptoms but also considered negative for vasovagal mediated syncope. This note was generated using a voice recognition system and there may be incorrect words, spelling or punctuation that were not noted when reviewing the office note prior to saving.
[2019-10-27 16:25] VITALS: BP 0/0; BP 122/70; BP 126/66
== END ==
PROVIDERS: Family Provider Physician Assistant; PCP Physician Assistant; Referring Provider Internal Medicine Cardiovascular Disease; Visit Provider Internal Medicine Cardiovascular Disease
DX: I49.3 Ventricular premature depolarization (principal)
CPT/HCPCS: 36415; 80048; 84703; 85027; 93660; J7040; A4216

== ENCOUNTER 2019-11-24 09:15 | Emergency (ER) | payer OTHER, SELFPAY ==
[2019-09-30 09:32] VITALS: BMI 28.8
[2019-11-24 09:16] VITALS: BP 129/78; PULSE 102; RESP 16; TEMP 36.4; O2SAT 100; BMI 29.3
--- NOTE | 2019-11-24 09:34 | ED.VISSUMM ---
- ER Visit Summary Date of Service: 11/24/19 Chief Complaint: Left posterior shoulder pain History of Present Illness: The patient is a 34 F MS and autonomic dysfunction. Patient states that she has had pain in her left posterior shoulder since Saturday. She thought she heard a pop this morning. But the pain is actually posteriorly in the soft tissue by her shoulder blade not in the shoulder joint itself. No fever. No trauma. No fall. She is right-hand dominant. She has never had problems of left shoulder any surgery. She denies any specific injury or lifting etc. Physical Examination: Young female no acute distress vital signs stable afebrile. H EENT exam unremarkable. Neck nontender. Lungs clear to auscultation bilaterally. Heart regular rhythm no murmur. Abdomen soft nontender normal bowel sounds no peritoneal signs. Extremities moves all 4. Neurovascular intact. When she moves her left shoulder there is pain in the soft tissue between her shoulder blade and her thoracic spine. There is no ecchymosis or bruising. He is tender to palpation this area. The shoulder itself is nontender. No redness or warmth. No swelling. She has full range of motion left shoulder AB and adduction is just because of this comfort when she raises her left arm in that area soft tissue. 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 Sensation. And radial pulse. Back tenderness soft tissue between the left shoulder blade and the vertebral bodies of the upper thoracic spine. No signs of trauma. Test Results: None Emergency Department Course and Treatment: History and exam are consistent with a muscle strain and spasm of the left posterior shoulder. She is already taken Aleve. She did not specifically want to do muscle relaxants. Treatment Plan: Hot shower, warm bath, massage. Motrin or Aleve. Follow-up if not improving. Disposition: dc Impression: Left upper back shoulder muscle strain and spasm This note was generated with [employer] dictation software. It may contain incorrect words, spelling, and punctuation that were not noted in review of the chart prior to signing ED Disposition - Plan for ED Patient: Referrals: Josias Krishnan PA [Primary Care Provider] -
--- NOTE | 2019-11-24 09:38 | ED.DEP ---
ED Disposition - Plan for ED Patient: Disposition: Home or Assisted Living Instructions: MUSCLE STRAIN, Extremity Referrals: Josias Krishnan PA [Primary Care Provider] - 1 Week if not improving Additional Instructions: Aleve or Motrin for pain inflammation. Hot shower, warm compress or heating pad, warm bath and massage. This is a strained muscle and should improve with time.
== END 2019-11-24 09:55 | disposition home or self-care (01) ==
LOC: ED 09:47
PROVIDERS: Emergency Provider Emergency Medicine; PCP Physician Assistant
DX: S46.912A Strain of unspecified muscle, fascia and tendon at shoulder and upper arm level, left arm, initial encounter (principal); X58.XXXA Exposure to other specified factors, initial encounter; Y93.9 Activity, unspecified; M62.838 Other muscle spasm
CPT/HCPCS: 99282

== ENCOUNTER → 2020-02-09 13:13 | Outpatient (CLI) | payer SELFPAY ==
--- NOTE | 2020-02-09 13:45 | MRI_ITS ---
STUDY: MRI BRAIN WITH AND WITHOUT CONTRAST REASON FOR EXAM: Female, 35 years old. Multiple sclerosis yearly f/u TECHNIQUE: Standardized multiplanar fat and water weighted pulse sequences were obtained. 15ml Dotarem via IV was administered for the contrast portion of the examination. COMPARISON: November 05, 2018 FINDINGS: Normal size of the ventricles and extra-axial spaces for the patient''s age. Again noted are the subcortical and periventricular white matter hyperintensities which are stable in comparison with the prior examination. There is no evidence of restricted diffusion or enhancement to suggest active demyelination. There is no demonstrated atrophy of the corpus callosum. There is no demonstrated myelin vacuolization. There is no demonstrated infratentorial disease.. Normal bilateral basal ganglia. Normal thalami. There is no extra-axial fluid accumulation. Normal flow voids within the major intracranial circulation suggesting patency by spin echo criteria. Normal venous enhancement. There is no enhancing intra-axial or extra-axial abnormality. Normal sella turcica, pituitary gland, infundibular stalk, optic chiasm and hypothalamus. Normal tectal plate and pineal gland. Normal midbrain, altagracia and medulla. Normal cerebellum. Normal basal cisterns. Normal bilateral temporal bones. Normal bilateral internal auditory canals. MRI/Brain W/WO Contrast IMPRESSION: Stable examination without evidence of active demyelination. Electronically Signed: Ihsan Dupont MD at 14:10 EDT Tel , Service support ,
== END ==
PROVIDERS: PCP Physician Assistant; Referring Provider Internal Medicine; Visit Provider Internal Medicine
DX: G35 Multiple sclerosis (principal)
CPT/HCPCS: 70553; A9575

== ENCOUNTER → 2024-10-15 | Outpatient (CLI) | payer SELFPAY | END | disposition home or self-care (01) | LOC: LABSPEC 12:31 | PROVIDERS: PCP Physician Assistant; Referring Provider Physician Assistant Surgical; Visit Provider Physician Assistant Surgical | DX: R35.0 Frequency of micturition (principal) | CPT/HCPCS: 87086; 87088 ==